=== PATIENT | male | born 1985 | race African-American/Black ===

== ENCOUNTER 2020-03-30 17:45 | Inpatient (IN) | payer OTHER ==
[~2020-03-30] VITALS: Ht 167.6 cm; Wt 44.5 kg
--- NOTE | 2020-03-30 00:58 | NUR ---
RN NOTE RECEIVED PT FROM ER VIA FREDDY ACCOMPANIED BY RN AND EMT. PT ALERT AND ORIENTED X 3. WITH TRACH SHILEY 6 CONNECTED TO VENT AND TOLERATING SETTINGS WELL. FIO2 60%. CONNECTED TO BED SIDE MONITOR. SR ON THE MONITOR. VITAL SIGNS STABLE. WITH YAO CATHETER DRAINING YELLOW URINE WITH SEDIMENTS. WITH J TUBE POSITIVE PLACEMENT ASPIRATED AND FLUSHED. BED BATH AND COMPLETE LINEN CHANGE COMPLETED. CALL LIGHT WITHIN REACH, SAFETY MEASURES IN PLACE, WILL MONITOR PT. Addendum: 03/31/20 at 0044 by RAEANN VILLANUEVA RN ERROR: CORRECTED CARMITA 03/30/20 [id number]
--- NOTE | 2020-03-30 17:53 | NUR ---
BIB [facility] C/O DESATURATION, O2 SAT 89% RECENTLY D/C [facility] AND DX WITH PNE. PATIENT A/OX4, PLACED ON THE MECHANICAL VENTILATOR. RT AT BEDSIDE. DR. ONEAL AT BEDSIDE FOR EVAL.
--- NOTE | 2020-03-30 18:00 | NUR ---
IV LINE ESTABLISHED, BLOOD DRAWN AND SENT TO LAB.
--- NOTE | 2020-03-30 18:01 | NUR ---
PATIENT REFUSED TO HAVE A YAO CATHETER CHANGE, EXPLAINED RISKS AND BENEFITS, STILL REFUSED. DR. ONEAL MADE AWARE AND STATED DO NOT SEND URINE IF CATHETER IS NOT CHANGED.
[2020-03-30 18:16] LABS: BASOPHILS % (AUTO) 0.3 % (0.0-2.0); EOSINOPHILS % (AUTO) 2.4 % (0.0-6.0); HEMATOCRIT 26 % (39-51); HEMOGLOBIN 8.3 g/dL (13.5-17.5); LYMPHOCYTES % (AUTO) 16.3 % (20.0-44.0); MEAN CORPUSCULAR HGB CONC 32 g/dl (31.0-36.0); MEAN CORPUSCULAR VOLUME 88 fL (80-96); MONOCYTES # (AUTO) 0.5 /CMM (0.1-1.30); MONOCYTES % (AUTO) 8.2 % (2.0-12.0); NEUTROPHILS # (AUTO) 4.5 /CMM (1.8-8.9); NEUTROPHILS % (AUTO) 72.8 % (43.0-81.0); PLATELET COUNT (AUTO) 408 /CMM (150-450); RED BLOOD CELL COUNT(AUTO) 2.98 MIL/uL (4.5-6.0); WHITE BLOOD COUNT (AUTO) 6.2 K/uL (4.3-11.0)
[2020-03-30] MEDS ORDERED: VANCOMYCIN 1 GM in IV D5W 250 ML IV ONE (18:30)
[2020-03-30] MEDS ORDERED: IV NS 0.9% 1,000 ML BAG IV ONE (18:30)
[2020-03-30] MEDS ORDERED: MEROPENEM 1,000 MG in IV NS 0.9% 100 ML IV ONE (18:30)
[2020-03-30 18:36] LABS: ALANINE AMINOTRANSFERASE 32 U/L (12-78); ALKALINE PHOSPHATASE 126 U/L (46-116); ASPARTATE AMINOTRANSFERASE 17 U/L (15-37); BILIRUBIN,DIRECT 0.1 mg/dL (0.0-0.2); BILIRUBIN,TOTAL 0.3 mg/dL (0.2-1.0); CARBON DIOXIDE 33 mmol/L (21-32); CHLORIDE 105 mmol/L (98-107); CREATININE 0.4 mg/dL (0.6-1.3); GLUCOSE 104 mg/dL (74-106); POTASSIUM 3.8 mmol/L (3.5-5.1); SODIUM SERUM 142 mmol/L (136-145); TOTAL PROTEIN, SERUM 7.1 g/dL (6.4-8.2); UREA NITROGEN, BLOOD 9 mg/dL (7-18)
--- NOTE | 2020-03-30 18:53 | NUR ---
Grandmother left contact information brenda obrien [phone]
[2020-03-30] MEDS ORDERED: MERO1VIA23 IV (18:59)
[2020-03-30] MEDS ORDERED: IPRA3AMP23 IH ×2 (18:59)
[2020-03-30] MEDS ORDERED: MIDO10TA JT (18:59)
[2020-03-30] MEDS ORDERED: CHLO473M5 MM (18:59)
[2020-03-30] MEDS ORDERED: MINE3.5O EACHEYE (18:59)
[2020-03-30] MEDS ORDERED: DOCU50LI JT (18:59)
[2020-03-30] MEDS ORDERED: ENOX40DI SQ (18:59)
[2020-03-30] MEDS ORDERED: ZINC1CAP2 JT (18:59)
[2020-03-30] MEDS ORDERED: ALPR0.5T8 JT (18:59)
[2020-03-30] MEDS ORDERED: MELA3TAB41 JT (18:59)
[2020-03-30] MEDS ORDERED: HYDR-4384 JT (18:59)
[2020-03-30] MEDS ORDERED: POLY17PO4 JT (18:59)
[2020-03-30] MEDS ORDERED: VANC500V IV (18:59)
[2020-03-30] MEDS ORDERED: BACL10TA JT (18:59)
[2020-03-30] MEDS ORDERED: ESCI10TA JT (18:59)
[2020-03-30] MEDS ORDERED: LACT-209 JT (18:59)
[2020-03-30] MEDS ORDERED: SENN-261 JT (18:59)
[2020-03-30] MEDS ORDERED: BISA10SU11 RC (18:59)
[2020-03-30] MEDS ORDERED: ASCO-495 JT (18:59)
[2020-03-30] MEDS ORDERED: ACET-868 JT ×2 (18:59)
[2020-03-30] MEDS ORDERED: LACT10SO JT (18:59)
[2020-03-30] MEDS ORDERED: METO5SOL JT (18:59)
[2020-03-30] MEDS ORDERED: ONDA4TAB5 JT (18:59)
--- NOTE | 2020-03-30 19:22 | NUR ---
COVID SWAB SENT, ENDORSED TO LILA WHITE FOR JENNIFER.
--- NOTE | 2020-03-30 19:39 | NUR ---
PT REFUSED TO HAVE ABG DRAWN, DR ONEAL MADE AWARE. PER DR ONEAL, VENT SETTINGS WILL STAY SAME, & PT WILL STILL NEED TO GO ICU.
[2020-03-30] MEDS ORDERED: MORPHINE SULFATE INJ 2 MG/ML DISP.SYRIN IV PRN (20:00)
[2020-03-30] MEDS ORDERED: HYDROCODONE/APAP 5/325MG TABLET GT PRN (20:00)
[2020-03-30] MEDS ORDERED: Z GUARD REMEDY 2 OZ OINT TP PRN (20:00)
[2020-03-30] MEDS ORDERED: TEMAZEPAM 15 MG CAPSULE GT PRN (20:00)
[2020-03-30] MEDS ORDERED: ONDANSETRON HCL/PF 4 MG/2 ML VIAL IVP PRN (20:00)
[2020-03-30] MEDS: ENOXAPARIN SODIUM 40 MG/0.4 ML DISP.SYRIN SQ SCH (20:00)
[2020-03-30] MEDS ORDERED: ACETAMINOPHEN 325 MG TABLET PO PRN (20:00)
[2020-03-30] MEDS ORDERED: AZITHROMYCIN 500 MG in IV D5W 250 ML IV ONE (20:00)
[2020-03-30] MEDS ORDERED: JEVITY 1.2 CAL 1,000 ML BOTTLE JT PRN (20:30)
[2020-03-30] MEDS ORDERED: BACLOFEN (10 MG) 10 MG TABLET GT PRN (20:30)
[2020-03-30] MEDS ORDERED: SENNOSIDES 8.6 MG TABLET GT PRN (20:30)
[2020-03-30] MEDS ORDERED: LACTULOSE 10 G/15 ML UDC (PYXIS) GT PRN (20:30)
[2020-03-30] MEDS ORDERED: ALBUTEROL FS 2.5 MG/0.5 ML VIAL.NEB NEB PRN (20:30)
[2020-03-30] MEDS ORDERED: MIDODRINE HCL (5MG) 5 MG TABLET GT PRN (20:30)
[2020-03-30] MEDS ORDERED: BISACODYL SUPP (10 MG) 10 MG/SUPP.RECT SUPP.RECT RC PRN (20:30)
[2020-03-30] MEDS ORDERED: ALPRAZOLAM 0.5 MG TABLET GT PRN (20:30)
[2020-03-30 20:58] LABS: C-REACTIVE PROTEIN 11.1 mg/dL (0.0-0.9)
[2020-03-30] MEDS: CHLORHEXIDINE GLUCONATE 15 ML UDC MM SCH (21:00)
[2020-03-30] MEDS ORDERED: PANTOPRAZOLE 40 MG VIAL IV ONE ×2 (21:00→21:30)
[2020-03-30] MEDS: DOCUSATE SODIUM LIQ 100 MG/10 ML UDC JT SCH (21:00)
[2020-03-30] MEDS ORDERED: MEROPENEM 500 MG in IV NS 0.9% 50 ML IV SCH (21:00)
[2020-03-30] MEDS ORDERED: HYDROCODONE/APAP 5/325MG TABLET ONE (21:11)
[2020-03-30] MEDS: HYDROCODONE/APAP 5/325MG TABLET JT PRN (21:22)
[2020-03-31] VITALS (75 sets, daily range): BP systolic 95–125; BP diastolic 49–91
--- NOTE | 2020-03-31 00:02 | NUR ---
REPORT GIVEN TO CINDY CARY FOR JENNIFER; PT TRANSPORTED TO ICU
--- NOTE | 2020-03-31 00:56 | NUR ---
RN NOTE PT NOTED TO HAVE OVERDUE MEDICATIONS TO BE GIVEN 03/30/201999 AND 2099. PER ERNESTO TOE STRIPPER, OKAY TO HOLD MEDICATIONS FOR NOW AND "LET PATIENT REST." NOTIFIED [facility].
--- NOTE | 2020-03-31 01:00 | NUR ---
RN NOTE COMPLETE BED BATH AND AM CARE COMPLETED VIA 2 PERSON ASSIST. PT TOLERATED WELL,. HAD 1 BOWEL MOVEMENT. KEPT COMFORTABLE.
--- NOTE | 2020-03-31 02:35 | NUR ---
RN NOTE PT STATES HAVING ALREADY RECIEVED FLU VACCINE AT SNF. ATTEMPTED TO CALL [facility] BUT NO ANSWER. WILL ENDORSE TO MORNING SHIFT TO FOLLOW UP.
[2020-03-31] MEDS ORDERED: VANCOMYCIN 1.25 GM in IV D5W 250 ML IV ONE (03:00)
[2020-03-31] MEDS ORDERED: MEROPENEM 1 G in IV NS 0.9% 100 ML IV SCH ×2 (03:00→11:00)
[2020-03-31] MEDS ORDERED: IV NS 0.9% 250 ML IV ONE (03:00)
[2020-03-31] MEDS ORDERED: VANCOMYCIN 1 GM VIAL ONE (03:05)
[2020-03-31] MEDS: IV NS 0.9% 1,000 ML IV PRN ×2 (03:07→17:09)
[2020-03-31] MEDS ORDERED: MEROPENEM 1 G VIAL IV ONE (03:08)
--- NOTE | 2020-03-31 04:00 | NUR ---
RN NOTE PT SLEEPING COMFORTABLY IN BED WITHOUT SIGNS OF DISTRESS OR DISCOMFORT. VITAL SIGNS STABLE VIA BEDSIDE MONITOR.
[2020-03-31 04:47] LABS: BASOPHILS % (AUTO) 0.4 % (0.0-2.0); EOSINOPHILS % (AUTO) 5.2 % (0.0-6.0); HEMATOCRIT 24 % (39-51); HEMOGLOBIN 7.8 g/dL (13.5-17.5); LYMPHOCYTES # (AUTO) 1.4 /CMM (0.8-4.8); LYMPHOCYTES % (AUTO) 22.5 % (20.0-44.0); MEAN CORPUSCULAR HGB CONC 33 g/dl (31.0-36.0); MEAN CORPUSCULAR VOLUME 88 fL (80-96); MONOCYTES # (AUTO) 0.4 /CMM (0.1-1.30); MONOCYTES % (AUTO) 6.8 % (2.0-12.0); NEUTROPHILS # (AUTO) 4.1 /CMM (1.8-8.9); NEUTROPHILS % (AUTO) 65.1 % (43.0-81.0); PLATELET COUNT (AUTO) 373 /CMM (150-450); RED BLOOD CELL COUNT(AUTO) 2.73 MIL/uL (4.5-6.0); WHITE BLOOD COUNT (AUTO) 6.3 K/uL (4.3-11.0)
--- NOTE | 2020-03-31 05:08 | NUR ---
RT NOTE Pt rec'd trached on [facility] vent on AC mode. Pt shows no signs of resp distress or sob. Pt awake and alert. Trach is patent and secured. Pt sx'd for thick mod amt of pale yellow secretions. Alarms are set and audible. Vent plugged into red outlet. Ambu bag and emergency spare trach bedside. Will continue to monitor closely. Addendum: 03/31/20 at 0509 by FRANKLIN HI RT Amended: Links added.
[2020-03-31 05:20] LABS: CALCIUM, SERUM 8.4 mg/dL (8.5-10.1); CREATININE 0.4 mg/dL (0.6-1.3); PHOSPHORUS 3.2 mg/dL (2.5-4.9); POTASSIUM 3.5 mmol/L (3.5-5.1)
[2020-03-31 06:00] LABS: THYROID STIMULATING HORMONE 2.99 uIU/mL (0.358-3.74)
--- NOTE | 2020-03-31 06:59 | NUR ---
RN NOTE SPOKE TO MELINA FROM [facility] TO INQUIRE ABOUT PT'S FLU VACCINATION RECORD. STATES THAT "IT IS NOT NOTED IN OUR CHART OR FROM THE PREVIOUS HOSPITALIZATION RECORD." SPOKE TO PT AGAIN WHO IS ALERT AND ORIENTED. STATES THAT HE DID RECIEVE THE VACCINE BUT DOES NOT REMEMBER WHEN OR WHERE HE RECEIVED IT.
--- NOTE | 2020-03-31 07:01 | NUR ---
RN NOTE NO ACUTE CHANGES SINCE ADMISSION TO UNIT. PT SLEEPING COMFORTABLY IN BED BUT EASILY AROUSABLE. VITAL SIGNS STABLE. IVF RUNNING ORDERED WITHOUT SIGNS OF COMPLICATIONS NOTED AT IV SITE. TOLERATING VENT SETTINGS WELL. NO SIGNS OF PAIN OR DISCOMFORT. DVT PUMPS NOT AVAILABLE, CALLED [employer] FOR DVT PUMP. CALL LIGHT WITHIN REACH, SAFETY MEASURES IN PLACE, WILL ENDORSE TO MORNING RN FOR JENNIFER.
--- NOTE | 2020-03-31 07:47 | NUR ---
HARNESS WORKER RECEIVED PT IN BED AOX4 VS STABLE PT IS TRACHED ON VENT SETTINGS NOTICED, IV ACCESS PATENT YAO PRESENT, GT FEEDING RUNNING PT TOLERATING WELL TURN AND REPOSITION IN BED WILL CONT TO MONITOR.
[2020-03-31] MEDS: DOCUSATE SODIUM LIQ 100 MG/10 ML UDC JT SCH ×2 (08:05→21:25)
[2020-03-31] MEDS: CHLORHEXIDINE GLUCONATE 15 ML UDC MM SCH ×2 (08:05→21:38)
[2020-03-31] MEDS: ZINC SULFATE 220 MG CAPSULE JT SCH (08:05)
[2020-03-31] MEDS: ASCORBIC ACID 500 MG TABLET NG SCH (08:05)
[2020-03-31] MEDS: DOXYCYCLINE HYCLATE (100 MG) 100 MG TABLET GT SCH ×2 (08:05→17:03)
[2020-03-31] MEDS: LANOLIN/MIN OIL/PETROLAT,WHT 3.5 GM TUBE EACHEYE SCH ×6 (08:06→23:30)
[2020-03-31] MEDS: POLYETHYLENE GLYCOL 3350 17 GM POWD.PACK GT SCH ×2 (08:07→17:00)
[2020-03-31] MEDS: ESCITALOPRAM OXALATE (10 MG) 10 MG TABLET GT SCH (08:07)
[2020-03-31] MEDS: MEROPENEM 1 G in IV NS 0.9% 100 ML IV SCH ×2 (12:36→21:40)
--- NOTE | 2020-03-31 17:28 | NUR ---
curriculum counselor pt in bed resting, no distress noted during shift, offered several times bed bath pt keep refusing stating, he received bed bath at night and dont need one, also 1st step mattress arrived pt is refusing to be placed, explained him risk and benefits pt still refusing will endorse closet organizer nurse to change during bed bath as pt agreed. turn and reposition q2hrs and as needed offload
--- NOTE | 2020-03-31 17:33 | NUR ---
FIO2 TITRATE DOWN TO 40% DUE TO SPO2 100% Addendum: 03/31/20 at 1734 by BERLIN ZULUAGA RT Amended: Links added.
[2020-03-31] MEDS: JEVITY 1.2 CAL 1,000 ML BOTTLE JT PRN (18:47)
[2020-03-31] MEDS ORDERED: JEVITY 1.2 CAL 1,000 ML BOTTLE JT PRN (19:00)
--- NOTE | 2020-03-31 19:00 | NUR ---
Received patient awake,alert,with tracheostomy tot he ventilator on AC mode,breathing regular and non labored,saturating high 90's, not in any distress.Coherent and appropriate,mouth talks and gestures, uncooperative,does not want to be bothered, refused total assessment,refused to move or turn. with J tube with on going tube feeding.
[2020-03-31] MEDS: ENOXAPARIN SODIUM 40 MG/0.4 ML DISP.SYRIN SQ SCH ×2 (19:53→20:00)
[2020-03-31] MEDS ORDERED: VANCOMYCIN 1.25 GM in IV D5W 250 ML IV SCH (20:00)
--- NOTE | 2020-03-31 20:00 | NUR ---
Refused meds. (LOVENOX SQ and eye ointment)
--- NOTE | 2020-03-31 20:00 | NUR ---
Awaiting Vanco trough result, (last level 24 ),will hold off Vanco dose till level comes back.
--- NOTE | 2020-03-31 21:38 | NUR ---
RT NOTE PT RECEIVED TRACHED ON MECHANICAL VENTILATION WITH SHILEY [address] PT AWAKE/ALERT. SX DONE, TRACH SECURED AND PATENT. SPUTUM OBTAINED. ALARMS ON AND AUDIBLE. NO DISTRESS NOTED. WILL MONITOR T/O SHIFT. Addendum: 03/31/20 at 2139 by BERYL NATION RT Amended: Links added.
--- NOTE | 2020-03-31 22:00 | NUR ---
Remains stable,asleep.Not in any distress.
[2020-04-01] VITALS (23 sets, daily range): BP systolic 99–169; BP diastolic 48–85
--- NOTE | 2020-04-01 | NUR ---
Still refusing to turn or move ,gets irritated easily ,does not want to be bothered.
--- NOTE | 2020-04-01 02:00 | NUR ---
Had a large bowel movement ,patient finally agreed to turn, AM bath done,placed on [employer] mattress. Remains stable,not in any distress,tolerated turning with no shortness of breath.
[2020-04-01] MEDS: LANOLIN/MIN OIL/PETROLAT,WHT 3.5 GM TUBE EACHEYE SCH ×6 (03:30→23:24)
--- NOTE | 2020-04-01 04:00 | NUR ---
Stable,not in any distress.Now refusing SCD's ,ewants to take it out of his legs.
[2020-04-01 04:48] LABS: BASOPHILS # (AUTO) 0.2 /CMM (0.0-0.2); BASOPHILS % (AUTO) 2.7 % (0.0-2.0); EOSINOPHILS % (AUTO) 5.1 % (0.0-6.0); HEMATOCRIT 25 % (39-51); HEMOGLOBIN 8.4 g/dL (13.5-17.5); LYMPHOCYTES # (AUTO) 0.9 /CMM (0.8-4.8); LYMPHOCYTES % (AUTO) 13.7 % (20.0-44.0); MEAN CORPUSCULAR HGB CONC 33 g/dl (31.0-36.0); MEAN CORPUSCULAR VOLUME 88 fL (80-96); MONOCYTES # (AUTO) 0.4 /CMM (0.1-1.30); NEUTROPHILS # (AUTO) 4.6 /CMM (1.8-8.9); NEUTROPHILS % (AUTO) 72.5 % (43.0-81.0); PLATELET COUNT (AUTO) 440 /CMM (150-450); RED BLOOD CELL COUNT(AUTO) 2.87 MIL/uL (4.5-6.0); WHITE BLOOD COUNT (AUTO) 6.3 K/uL (4.3-11.0)
[2020-04-01 05:07] LABS: CALCIUM, SERUM 8.3 mg/dL (8.5-10.1); CREATININE 0.3 mg/dL (0.6-1.3); MAGNESIUM 2.1 mg/dL (1.8-2.4); PHOSPHORUS 3.5 mg/dL (2.5-4.9); POTASSIUM 3.9 mmol/L (3.5-5.1)
[2020-04-01] MEDS: MEROPENEM 1 G in IV NS 0.9% 100 ML IV SCH ×3 (05:15→20:43)
--- NOTE | 2020-04-01 07:00 | NUR ---
Remains stable,not in any distress,breathing regular and non labored. Report given to Shmuel WHITE.
--- NOTE | 2020-04-01 08:20 | NUR ---
NOODLE MAKER NOTES RECEIVED PATIENT IN BED RESTING COMFORTABLY. RESPONSIVE TO VERBAL AND TACTILE STIMULI. PATIENT ON J-TUBE FEEDING ON JEVITY 70 CC/HR. RESIDUAL 30 CC NOTED. HEAD OF BED KEPT ELEVATED. ON TELE MONITORING, SR. ON TRACH TO VENT SETTING ORDERED. YAO CATHETER TO GRAVITY URINE CLOUDY AND YELLOW. WITH LEFT AC #20 AND RIGHT FA #18 INTACT AND PATENT, FLUSHING WELL. ON IV FLUID ORDERED. BED LOCKED AND IN LOWEST POSITION. CALL LIGHT WITHIN REACH. REFUSING DVT PUMPS AT THIS TIME. WILL CONTINUE TO MONITOR.
[2020-04-01] MEDS: ASCORBIC ACID 500 MG TABLET NG SCH (08:34)
[2020-04-01] MEDS: DOCUSATE SODIUM LIQ 100 MG/10 ML UDC JT SCH ×2 (08:34→20:43)
[2020-04-01] MEDS: ESCITALOPRAM OXALATE (10 MG) 10 MG TABLET GT SCH (08:35)
[2020-04-01] MEDS: DOXYCYCLINE HYCLATE (100 MG) 100 MG TABLET GT SCH ×2 (08:35→16:37)
[2020-04-01] MEDS: ZINC SULFATE 220 MG CAPSULE JT SCH (08:35)
[2020-04-01] MEDS: POLYETHYLENE GLYCOL 3350 17 GM POWD.PACK GT SCH ×2 (08:44→16:37)
[2020-04-01] MEDS: CHLORHEXIDINE GLUCONATE 15 ML UDC MM SCH ×2 (08:44→20:43)
[2020-04-01] MEDS: IV NS 0.9% 1,000 ML IV PRN ×2 (09:02→22:05)
[2020-04-01] MEDS: JEVITY 1.2 CAL 1,000 ML BOTTLE JT PRN ×2 (09:02→22:05)
--- NOTE | 2020-04-01 09:03 | NUR ---
WOUND CARE CONSULT: PT ADAMANTLY REFUSED SKIN ASSESSMENT. REVIEWED CHART, NURSING DOCUMENTATION AND PHOTOS WHICH INDICATE SACRAL AND BUTTOCK WOUNDS, UPPER BACK WOUND AND SCARRING FROM PREVIOUS FLAP PROCEDURE PER SENDING FACILITY, ALL PRESENT ON ADMISSION. RECOMMEND SURGICAL CONSULT. DR BARTON NOTIFIED OF CONSULT REQUEST. PT IS ON FIRST STEP [facility] BED. SKIN PROTECTION RECOMMENDATIONS MADE AND DISCUSSED WITH NURSING STAFF. MD IN AGREEMENT WITH PLAN OF CARE.
--- NOTE | 2020-04-01 09:07 | NUR ---
ELECTRONIC SCALE SUBASSEMBLER NOTES WOUND CARE NURSE AT BEDSIDE. PATIENT REFUSING TO CHECK WOUNDS ON SACRUM AND HIP.
--- NOTE | 2020-04-01 10:34 | NUR ---
SYSTEM SUPPORT DEVELOPER NOTES PER MELISSA MESSINA TO TRANSFER TO TELE UNIT. WILL FOLLOW UP.
--- NOTE | 2020-04-01 10:37 | NUR ---
WELL DIGGER NOTES DR. WELLS AT BEDSIDE, UPDATED PATIENT CONDITION. MADE AWARE PATIENT NON COMPLIANT WITH DVT PUMPS AND REFUSED SKIN CHECK WITH WOUND CARE NURSE.
--- NOTE | 2020-04-01 11:24 | NUR ---
ARTS ADMINISTRATOR OR MANAGER NOTES PATIENT STILL REFUSING TO REPOSITION, CHECK WOUND ON SACRUM, AND REFUSING TO BE CHANGED AT THIS TIME. PATIENT REFUSED FLU VACCINE. OFFERED AND EXPLAINED RISKS AND BENEFITS, BUT STILL STRONGLY REFUSED. WILL RESPECT PATIENT RIGHTS.
[2020-04-01] MEDS: VANCOMYCIN 1 GM in IV D5W 250 ML IV SCH (15:44)
--- NOTE | 2020-04-01 15:57 | NUR ---
staff nurse icu resource team note no bed available in tele unit chrarge nurse notified ,
--- NOTE | 2020-04-01 18:21 | NUR ---
IMMUNOLOGY TEACHER NOTES PATIENT STILL REFUSING TO DO REPOSITION. CONTINUE ON IVF. CONTINUE J-TUBE FEEDING, TOLERATING WELL. PATIENT HAS TRACH ORDERED. BED LOCKED AND IN LOWEST POSITION. CALL LIGHT WITHIN REACH. SAFETY MEASURES IMPLEMENTED. SPOKE WITH CHARGE NURSE TO TRANSFER TO TELE UNIT, STATED WILL FOLLOW UP AND WILL ENDORSE NEXT SHIFT.
--- NOTE | 2020-04-01 19:41 | NUR ---
PEOPLESOFT DEVELOPER. INITIAL ASSESSMENT. RECEIVED THE PT REST ON THE BED. TRACH TO VENT CONNECTED. PORTEX#6,AC 14,TV 500,FIO2 40%,PEEP 5. SAT 98%. NO ACUTE DISTRESS NOTED. VULCANIZER OPERATOR SHOWING NSR. IV LT AND RT HAND IVF NS 75ML/H. HOB ELEVATED, GT INTACT. JEVITY 70ML/H. FC PATENT. URINE DRAINING. AFEBRILE. WILL CONTINUE TO MONITOR VITALS.
[2020-04-01] MEDS: THERAHONEY GEL 1.5 OZ TUBE TP SCH (20:43)
[2020-04-01] MEDS: ENOXAPARIN SODIUM 40 MG/0.4 ML DISP.SYRIN SQ SCH (20:49)
--- NOTE | 2020-04-01 20:53 | NUR ---
REACH LIFT TRUCK DRIVER. ALL MEDS SCANNED
--- NOTE | 2020-04-01 21:00 | NUR ---
articulation officer. transfer the pt to room 103. with ACLS protocol report given to MANJEET WHITE. pt is stable,
--- NOTE | 2020-04-01 21:10 | NUR ---
QA TEST ANALYST NOTE RECEIVED REPORT FROM MARTIN WHITE, PATIENT FROM ICU VIA HOSPITAL BED ACCOMPANIED BY ICU ASSEMBLER SURGICAL GARMENT, PATIENT IS AO X3, IN NO S/SX OF ACUTE DISTRESS AT THIS TIME. PATIENT'S BREATHING IS EVEN AND UNLABORED, ON TRACH CONNECTED TO MECHANICAL VENTILATOR WITH SETTINGS PRESCRIBED, TOLERATING WELL, SATURATING AT 96%. PATIENT ON TELE MONITOR READING SR, HR IS @63. IV SITE NOTED AT LAC G20, AND RFA G18, BOTH PATENT AND FLUSHING WELL, RESTARTED IV FLUID OF NS AT 75 ML/HR. NOTED GTUBE INTACT, PLACEMENT WAS CHECKED BY ASPIRATION AND AUSCULTATION, NO RESIDUAL NOTED, RESTARTED GTUBE FEEDING OF JEVITY 1.2 AT 70 ML/HR PER ORDERS. YAO CATHETER CONNECTED TO URINE BAG IN PLACE, DRAINING TO A CLEAR YELLOWISH URINE. SAFETY MEASURES IMPLEMENTED PER PROTOCOL. PATIENT BED ALARM IS ON. HEAD OF BED ELEVATED. BED IS LOCKED, IN LOWEST POSITION AND SIDE RAILS UP. CALL LIGHT WITHIN REACH OF THE PATIENT. WILL CONTINUE TO MONITOR AND REASSESS FOR ANY CHANGES.
--- NOTE | 2020-04-01 23:24 | NUR ---
RN NOTE AKWA TEARS OINTMENT GIVEN BY RN AT ICU AT 2100. NEXT DOSE WILL BE GIVEN AT 0100.
[2020-04-01] MEDS: HYDROCODONE/APAP 5/325MG TABLET JT PRN (23:26)
[2020-04-02] VITALS: BP 109/68
[2020-04-02 04:00] VITALS: BP 107/67
[2020-04-02] MEDS: VANCOMYCIN 1 GM in IV D5W 250 ML IV SCH ×2 (04:44→16:06)
[2020-04-02] MEDS: MEROPENEM 1 G in IV NS 0.9% 100 ML IV SCH ×3 (04:44→20:12)
[2020-04-02] MEDS: LANOLIN/MIN OIL/PETROLAT,WHT 3.5 GM TUBE EACHEYE SCH ×6 (04:45→23:34)
--- NOTE | 2020-04-02 07:15 | NUR ---
RN OPENING NOTE Received patient asleep in bed appears calm and relaxed. No signs of distress. On trach and vent Shiley 8 AC 14 TV 500 FIO2 40% PEEP 5. Patient is AO X3 able to mouth words and tried to refuse blood draw. Explained risk and benefits and was able to get blood by honey extractor. Tele monitor reading SR 60s. On a FC draining clear yellow urine by gravity. GT feeding running Jevity 1.2 @ 70ml/hr. LAC #20 running NS @ 75ml/hr. RFA #18 flushes well. Patient is able to move his arms and write on paper and able to mouth words when communicating. Safety measures maintained. Call light within reach. Will cont to monitor.
--- NOTE | 2020-04-02 07:32 | NUR ---
RN NOTE PATIENT REMAINS IN ROOM RESTING COMFORTABLY. NO SIGNS OF RESPIRATORY DISTRESS, STILL ON TRACH CONNECTED TO MECH VENT, TOLERATTING WELL SATURATING >95%. NS INFUSING AT 75 ML/HR, AND TUBE FEEDING OF JEVITY AT 70 ML/HR. PATIENT IS CLEAN , DRY AND COMFORTABLE THROUGHOUT THE SHIFT. ALL DUE MEDS GIVEN ORDERED ; PATIENT TOLERATED WELL. SAFETY MEASURES IMPLEMENTED, BED IN LOWEST POSITION, LOCKED, SIDE RAILS UP, CALL LIGHT WITHIN REACH. ENDORSED TO CLAIRE RN FOR CONTINUITY OF CARE.
[2020-04-02 07:42] LABS: BASOPHILS # (AUTO) 0.1 /CMM (0.0-0.2); BASOPHILS % (AUTO) 1.5 % (0.0-2.0); EOSINOPHILS % (AUTO) 6.6 % (0.0-6.0); HEMATOCRIT 26 % (39-51); HEMOGLOBIN 8.3 g/dL (13.5-17.5); LYMPHOCYTES % (AUTO) 22.5 % (20.0-44.0); MEAN CORPUSCULAR HGB CONC 33 g/dl (31.0-36.0); MEAN CORPUSCULAR VOLUME 89 fL (80-96); MONOCYTES # (AUTO) 0.3 /CMM (0.1-1.30); MONOCYTES % (AUTO) 7.6 % (2.0-12.0); NEUTROPHILS # (AUTO) 2.8 /CMM (1.8-8.9); NEUTROPHILS % (AUTO) 61.8 % (43.0-81.0); PLATELET COUNT (AUTO) 452 /CMM (150-450); RED BLOOD CELL COUNT(AUTO) 2.89 MIL/uL (4.5-6.0); WHITE BLOOD COUNT (AUTO) 4.6 K/uL (4.3-11.0)
[2020-04-02 07:54] LABS: CALCIUM, SERUM 8.8 mg/dL (8.5-10.1); CREATININE 0.3 mg/dL (0.6-1.3); PHOSPHORUS 3.1 mg/dL (2.5-4.9); POTASSIUM 4.1 mmol/L (3.5-5.1)
[2020-04-02 08:00] VITALS: BP 95/47
--- NOTE | 2020-04-02 08:00 | NUR ---
CALLED DR. TOLLIVER TO INQUIRE IF HE STILL WANTS TO CONTINUE IVF. GT FEEDING TOLERATING WELL. AWAITING RESPONSE.
[2020-04-02] MEDS: DOXYCYCLINE HYCLATE (100 MG) 100 MG TABLET GT SCH ×2 (08:56→16:07)
[2020-04-02] MEDS: ZINC SULFATE 220 MG CAPSULE JT SCH (08:56)
[2020-04-02] MEDS: ESCITALOPRAM OXALATE (10 MG) 10 MG TABLET GT SCH (08:56)
[2020-04-02] MEDS: CHLORHEXIDINE GLUCONATE 15 ML UDC MM SCH ×2 (08:56→20:07)
[2020-04-02] MEDS: POLYETHYLENE GLYCOL 3350 17 GM POWD.PACK GT SCH ×2 (08:56→16:06)
[2020-04-02] MEDS: DOCUSATE SODIUM LIQ 100 MG/10 ML UDC JT SCH ×2 (08:56→20:07)
[2020-04-02] MEDS: THERAHONEY GEL 1.5 OZ TUBE TP SCH (08:57)
[2020-04-02] MEDS: ASCORBIC ACID 500 MG TABLET NG SCH (08:57)
--- NOTE | 2020-04-02 10:00 | NUR ---
OFFERED TO TURN PATIENT PATIENT REFUSED
[2020-04-02 12:00] VITALS: BP 94/55
--- NOTE | 2020-04-02 14:30 | NUR ---
FACETIMED WITH SISTER CHRIS. OFFERED TO TURN PATIENT PATIENT REFUSED.
--- NOTE | 2020-04-02 15:17 | NUR ---
OFFERED TO GIVE PAIN MEDS TO PATIENT BEFORE BED BATH. PATIENT REFUSED.
[2020-04-02 16:00] VITALS: BP 116/68
[2020-04-02] MEDS: JEVITY 1.2 CAL 1,000 ML BOTTLE JT PRN (16:07)
--- NOTE | 2020-04-02 18:49 | NUR ---
RN OPENING NOTE Patient in bed asleep appears calm and relaxed. No signs of distress. Vent settings remain the same. GT feeding running tolerating well. IV NS 75ml/hr running or R forearm. Jasso catheter in place drained 1300ml clear yellow urine. No co pain or discomfort. Vital signs within normal limits. Will endorse to night time nanny nurse for camron. Addendum: 04/02/20 at 1853 by EDITH MCNAIR RN RN CLOSING NOTE
--- NOTE | 2020-04-02 19:05 | NUR ---
RECEIVED PT ON BED AWAKE A/O X 4 CAN MOUTH WORDS ON TRACH VENT SETTING ORDER, SPO2 98% TELE MONITR READS SINUS RHYTHM 60'S HAVE GTUBE ON PLACE PATENT AND PLACEMENT CHECKED RESIDUAL 5ML, HAVE YAO WITH YELLOW URINE RAINING VIA GRAVITY PT IS REFUSING THE SCD HE ONLY WANTS THE BOOTS THAT HE IS WEARING, PT HAVE LAC# 20 AND RFA #18 IV CLEAN DRY AND INTACT PATENT AND FLUSHED WITH ONGOING NS @ 75ML/HR INFUSING WELL SAFETY MEASURE MAINTAINED BED ON LOWEST POSITION AND LOCKED SIDE RAILS UPX 2 CALL LIGHT WITHIN REACH WILL CONT TO MONITOR THE PT
[2020-04-02 20:00] VITALS: BP 98/51
[2020-04-02] MEDS: ENOXAPARIN SODIUM 40 MG/0.4 ML DISP.SYRIN SQ SCH (20:00)
[2020-04-02] MEDS: HYDROCODONE/APAP 5/325MG TABLET JT PRN (20:07)
--- NOTE | 2020-04-02 20:27 | NUR ---
PT REFUSED LOVENOX INJECTION EXPLAIN RISK AND BENEFITS X3 BUT PT STILL REFUSING CHARGE NURSE MADE AWARE WILL CONT TO MONITOR THE PT
[2020-04-03] MEDS: IV NS 0.9% 1,000 ML IV PRN ×2 (00:02→21:22)
[2020-04-03 00:30] VITALS: BP 97/52
[2020-04-03] MEDS: VANCOMYCIN 1 GM in IV D5W 250 ML IV SCH ×2 (02:58→15:50)
[2020-04-03] MEDS: LANOLIN/MIN OIL/PETROLAT,WHT 3.5 GM TUBE EACHEYE SCH ×6 (03:23→23:30)
[2020-04-03 04:00] VITALS: BP 96/50
[2020-04-03] MEDS: MEROPENEM 1 G in IV NS 0.9% 100 ML IV SCH ×2 (04:31→12:50)
[2020-04-03] MEDS: JEVITY 1.2 CAL 1,000 ML BOTTLE JT PRN ×2 (05:55→22:06)
--- NOTE | 2020-04-03 06:00 | NUR ---
PT REFUSED THE AM BLOOD DRAW EXPLAIN THE RISK AND BENEFITS BUT PT STILL REFUSING AND HE BECOME MORE UPSET WHEN WE ARE EXPLAINING TO HIM WHY HE NEED THE BLOOD DRAW CHARGE NURSE MADE AWARE
[2020-04-03 08:00] VITALS: BP 96/54
--- NOTE | 2020-04-03 08:00 | NUR ---
telephone directory distributor driver note patient in bed , sleeping comfortably but easily arousable , with vent to trach as ordered, on tele hr 60 at this time, with Jasso cath to gravity with yellow color urine, with g tube feeding tolerated well keep hob elevated at all time olivia hl intact ,on ivf as ordered bed in lowest and locked position, will cont to monitor
[2020-04-03] MEDS: DOXYCYCLINE HYCLATE (100 MG) 100 MG TABLET GT SCH ×2 (08:40→16:22)
[2020-04-03] MEDS: ZINC SULFATE 220 MG CAPSULE JT SCH (08:41)
[2020-04-03] MEDS: ESCITALOPRAM OXALATE (10 MG) 10 MG TABLET GT SCH (08:41)
[2020-04-03] MEDS: ASCORBIC ACID 500 MG TABLET NG SCH (08:41)
[2020-04-03] MEDS: DOCUSATE SODIUM LIQ 100 MG/10 ML UDC JT SCH ×2 (08:41→21:00)
[2020-04-03] MEDS: CHLORHEXIDINE GLUCONATE 15 ML UDC MM SCH ×2 (08:44→21:21)
[2020-04-03] MEDS: POLYETHYLENE GLYCOL 3350 17 GM POWD.PACK GT SCH ×3 (08:53→16:30)
[2020-04-03] MEDS: THERAHONEY GEL 1.5 OZ TUBE TP SCH (09:00)
--- NOTE | 2020-04-03 10:00 | NUR ---
telesales specialist note report given to Angy
[2020-04-03 13:33] LABS: CALCIUM, SERUM 9.1 mg/dL (8.5-10.1); CREATININE 0.3 mg/dL (0.6-1.3); MAGNESIUM 2.3 mg/dL (1.8-2.4); PHOSPHORUS 3.5 mg/dL (2.5-4.9); POTASSIUM 4.3 mmol/L (3.5-5.1)
[2020-04-03 14:25] LABS: BASOPHILS # (AUTO) 0.2 /CMM (0.0-0.2); EOSINOPHILS % (AUTO) 3.8 % (0.0-6.0); HEMATOCRIT 31 % (39-51); LYMPHOCYTES # (AUTO) 0.5 /CMM (0.8-4.8); LYMPHOCYTES % (AUTO) 9.3 % (20.0-44.0); MEAN CORPUSCULAR HGB CONC 29 g/dl (31.0-36.0); MEAN CORPUSCULAR VOLUME 101 fL (80-96); MONOCYTES # (AUTO) 0.2 /CMM (0.1-1.30); MONOCYTES % (AUTO) 4.1 % (2.0-12.0); NEUTROPHILS % (AUTO) 79.8 % (43.0-81.0); PLATELET COUNT (AUTO) 458 /CMM (150-450); RED BLOOD CELL COUNT(AUTO) 3.09 MIL/uL (4.5-6.0)
--- NOTE | 2020-04-03 15:46 | NUR ---
telephone messenger note cesar rn life insurance specialist at bedside verified about ivf at 75 ml per hour and g tube feeding at 70 ml stated cont to administer diaz will f\u aware chest xay pna
[2020-04-03 16:00] VITALS: BP 90/48
[2020-04-03] MEDS: GENTAMICIN 400 MG in IV D5W 100 ML IV SCH (16:24)
--- NOTE | 2020-04-03 17:01 | NUR ---
KIT ASSEMBLER NOTE RT AT BEDSIDE ,TRACH SUCTION DONE
--- NOTE | 2020-04-03 17:23 | NUR ---
EXECUTIVE DIRECTOR OF NURSING NOTE NEW HL LT HAND HASMUKH 22 INSERTED WITH GOOD BLOOD RETURN
[2020-04-03] MEDS: LEVOFLOXACIN (250MG) 250 MG TABLET PO SCH (17:32)
--- NOTE | 2020-04-03 18:20 | NUR ---
CORRECTIONS LIEUTENANT CLOSING NOTE PT SEMI FOWLERS IN BED. PT A/OX3, UNABLE TO SPEAK, CAN MOUTH WORDS OR COMMUNICATE VIA WRITING DOWN. PT REPOSITIONED IN BED FOR COMFORT. PT ON VENTILATOR PER ORDER. PT TOLERATED JEVITY G TUBE FEED @70ML/HR. THROUGHOUT DAY. NEW IV 22 GAUGE LT HAND PLACED. CONTINUE W VENT SETTINGS ORDERED CONTINUE G TUBE FEEDINGS AND PULMONARY VENTILATION PRESCRIBED. SAFETY PRECAUTIONS IN PLACE, BED LOCKED AND IN LOWEST POSITION, CALL WELLS WITHIN REACH, SIDE RAILS UP X4. CONTINUE TO MONITOR.
[2020-04-03] MEDS: ENOXAPARIN SODIUM 40 MG/0.4 ML DISP.SYRIN SQ SCH (20:00)
--- NOTE | 2020-04-03 20:00 | NUR ---
jewelry internship opening note received pt in bed. a/ox4. Breathing even and unlabored with no sob or acute distress noted. Denies any pain or discomfort. IV site patent and intact. iv fluids infusing well. gtube patent. placement checked . gtf infusing well with no residual noted. Jasso cathether in place.yellow clear urine noted. Kept clean and dry. pt repositioned. srx2 up. bed in lowest position. All needs rendered. Will continue to monitor.
[2020-04-04] VITALS: BP 112/62
--- NOTE | 2020-04-04 02:30 | NUR ---
television installer note spoke with shailesh from lab . gentamicin level reported 4.0. will follow up with md in am.
[2020-04-04] MEDS: LANOLIN/MIN OIL/PETROLAT,WHT 3.5 GM TUBE EACHEYE SCH ×4 (03:30→15:30)
[2020-04-04 04:00] VITALS: BP 96/48
--- NOTE | 2020-04-04 04:56 | NUR ---
overnight babysitter note Patient refused wound pictures to be taken. Pt also refused to be cleaned. Offered x3 .Pt still refused.
--- NOTE | 2020-04-04 05:30 | NUR ---
telephone sterilizer note pt refused lab draw. offered x3 . still refused.
--- NOTE | 2020-04-04 06:50 | NUR ---
motor and controls tester note Pt in bed, sleep. Breathing even and unlabored on mechanical vent with no sob or acute distress noted. no s/s of pain noted. no facial grimacing noted. IV lines patent and intact. IV fluids infusing well. Refused to be clean and refused all due meds despite of offering multiple times. Pt also refused lab draw. Jasso cath in place draining yellow clear urine. Peg in placed. GTF infusing well. No residual noted. Srx2 up. Bed in lowest position. All needs rendered. Will endorse to AM nurse for continuity of care.
--- NOTE | 2020-04-04 07:30 | NUR ---
RN OPENING NOTES Patient in bed, [facility], A/Ox4, able to speak with the lips and make his needs known, tolerating vent settings well, no SOB, or resp distress noted. denies pain or discomfort, Jasso cath noted in place, draining yellow clear urine by gravity, IV lines noted on L Hand running NS @75cc/hr, and R FA line, flushed and locked, both lines patent and intact. Tele-monitor readings is SR 67. Safety measures in place, call light in reach, hob elevated, will cont to monitor
[2020-04-04 08:00] VITALS: BP 115/64
[2020-04-04] MEDS: ZINC SULFATE 220 MG CAPSULE JT SCH (08:40)
[2020-04-04] MEDS: CHLORHEXIDINE GLUCONATE 15 ML UDC MM SCH (08:40)
[2020-04-04] MEDS: DOCUSATE SODIUM LIQ 100 MG/10 ML UDC JT SCH ×2 (08:40→09:00)
[2020-04-04] MEDS: ASCORBIC ACID 500 MG TABLET NG SCH (08:40)
[2020-04-04] MEDS: POLYETHYLENE GLYCOL 3350 17 GM POWD.PACK GT SCH ×3 (08:40→17:00)
[2020-04-04] MEDS: THERAHONEY GEL 1.5 OZ TUBE TP SCH (08:42)
[2020-04-04] MEDS: ESCITALOPRAM OXALATE (10 MG) 10 MG TABLET GT SCH (08:45)
--- NOTE | 2020-04-04 09:30 | NUR ---
Patient refused mmorning care, refused stool softener meds, refused eye care
[2020-04-04 12:00] VITALS: BP 121/67
--- NOTE | 2020-04-04 12:00 | NUR ---
Initiate facetime phone call with sister Leslie
[2020-04-04] MEDS: IV NS 0.9% 1,000 ML IV PRN (12:40)
[2020-04-04] MEDS: JEVITY 1.2 CAL 1,000 ML BOTTLE JT PRN (12:41)
[2020-04-04 13:05] LABS: BASOPHILS # (AUTO) 0.1 /CMM (0.0-0.2); EOSINOPHILS % (AUTO) 3.9 % (0.0-6.0); HEMATOCRIT 27 % (39-51); HEMOGLOBIN 8.8 g/dL (13.5-17.5); LYMPHOCYTES # (AUTO) 0.6 /CMM (0.8-4.8); LYMPHOCYTES % (AUTO) 11.1 % (20.0-44.0); MEAN CORPUSCULAR HGB CONC 33 g/dl (31.0-36.0); MEAN CORPUSCULAR VOLUME 89 fL (80-96); MONOCYTES # (AUTO) 0.3 /CMM (0.1-1.30); MONOCYTES % (AUTO) 5.1 % (2.0-12.0); NEUTROPHILS # (AUTO) 3.9 /CMM (1.8-8.9); NEUTROPHILS % (AUTO) 77.9 % (43.0-81.0); PLATELET COUNT (AUTO) 498 /CMM (150-450); RED BLOOD CELL COUNT(AUTO) 3.05 MIL/uL (4.5-6.0); WHITE BLOOD COUNT (AUTO) 5.1 K/uL (4.3-11.0)
[2020-04-04 13:30] LABS: CALCIUM, SERUM 9.1 mg/dL (8.5-10.1); CREATININE 0.4 mg/dL (0.6-1.3); POTASSIUM 4.2 mmol/L (3.5-5.1)
[2020-04-04 13:31] LABS: PHOSPHORUS 3.3 mg/dL (2.5-4.9)
--- NOTE | 2020-04-04 14:30 | NUR ---
Patient refused bed bath, eye care, wound care, education provided x3, still refusing
[2020-04-04 16:00] VITALS: BP 126/74
--- NOTE | 2020-04-04 16:03 | NUR ---
Per pharmacy OK to Give gentamicin
[2020-04-04] MEDS: GENTAMICIN 400 MG in IV D5W 100 ML IV SCH (16:07)
--- NOTE | 2020-04-04 16:30 | NUR ---
Called patient's sister Leslie , informed about pt's discharge
[2020-04-04] MEDS: LEVOFLOXACIN (250MG) 250 MG TABLET PO SCH (17:24)
--- NOTE | 2020-04-04 17:24 | NUR ---
patient refused discharge pictures, education provided x3, still refused
--- NOTE | 2020-04-04 17:30 | NUR ---
REPORT GIVEN TO JAEL REYES RN AT [facility]
--- NOTE | 2020-04-04 18:47 | NUR ---
RN CLOSING NOTES PATIENT REMAINS IN BED, TOLERATING TREATMENT WELL, REFUSED CARE, REFUSED WOUND CARE , REFUSED EYE TREATMENT, REFUSED STOOL SOFTENER, EDUCATION PROVIDED X3, STILL REFUSED, DISCHARGE PAPERWORK PROVIDED , WAITING FOR AMBULANCE TO [facility] AT 1930, WILL ENDORSE TO PM RN SHIFT
--- NOTE | 2020-04-04 19:15 | NUR ---
telegraph mechanic note Received pt in bed. awake a/o x4. Breathing even and unlabored with no sob or acute distress noted on mechanical vent. Denies any pain or discomfort. Gtube in placed. verified placement. barrios catheter noted with clear yellow urine. IV sites patent and intact. IV fluids infusing well. All needs rendered. Srx2 up. Bed in lowest position. Will continue to monitor.
--- NOTE | 2020-04-04 20:15 | NUR ---
automobile insurance claim examiner note Pt discharged in stable condition.a/o x3. VS taken. Left hand IV and right forearm iv site left in place for the facility he's going to. All belonging signed and checked. Pt left unit via gurney accompanied by 2 buyer liaison and 1 RT. Charge nurse aware of discharge.
== END 2020-04-04 21:16 | DRG 720 ==
LOC: ER 17:55 → ICU 22:38 → TELE1 04-01 21:39
PROVIDERS: ADMIT Nurse Practitioner Acute Care; ATTEND Nurse Practitioner Acute Care
PROC: 5A1955Z Respiratory Ventilation, Greater than 96 Consecutive Hours (ICD-10-PCS; principal; 2020-03-30)
DX: A41.9 Sepsis, unspecified organism (principal); I48.20 Chronic atrial fibrillation, unspecified; J96.21 Acute and chronic respiratory failure with hypoxia; R53.2 Functional quadriplegia; Z99.11 Dependence on respirator [ventilator] status; R13.10 Dysphagia, unspecified; Z93.0 Tracheostomy status; Z93.1 Gastrostomy status; F32.9 Major depressive disorder, single episode, unspecified; D68.59 Other primary thrombophilia; Z79.51 Long term (current) use of inhaled steroids; Z79.899 Other long term (current) drug therapy; Z87.11 Personal history of peptic ulcer disease; J15.6 Pneumonia due to other Gram-negative bacteria; D63.8 Anemia in other chronic diseases classified elsewhere; L89.153 Pressure ulcer of sacral region, stage 3; L89.106 Pressure-induced deep tissue damage of unspecified part of back; B96.5 Pseudomonas (aeruginosa) (mallei) (pseudomallei) as the cause of diseases classified elsewhere
CPT/HCPCS: 31720; 36415; 71045-TC; 80048-TC; 80061-TC; 80076-TC; 80170-TC; 80202-TC; 82728-TC; 83605-TC; 83615-TC; 83735-TC; 84100-TC; 84443-TC; 84484-TC; 85025-TC; 85730-TC; 86140-TC; 87040-TC; 87070-TC; 87081-TC; 87186-TC; 94003-TC; 94640-TC; 94760-TC; 94799-TC; 99082-TC; A6403; A7526; G0378; J0456; J1580; J1650; J2185; J2270; J3370; J7030; J7050; J7060; U0003

== ENCOUNTER 2020-04-26 23:46 | Inpatient (IN) | payer OTHER ==
[~2020-04-26] VITALS: Ht 170.2 cm; Wt 48.1 kg
[~2020-04-26 23:46] MED LIST: ACET-868 JT; ALPR0.5T8 JT; ASCO-495 JT; BACL10TA JT; BISA10SU11 RC; CHLO473M5 MM; DOCU50LI JT; ENOX40DI SQ; ESCI10TA JT; HYDR-4384 JT; IPRA3AMP23 IH; LACT-209 JT; LACT10SO JT; MELA3TAB41 JT; METO5SOL JT; MIDO10TA JT; MINE3.5O EACHEYE; ONDA4TAB5 JT; POLY17PO4 JT; SENN-261 JT; ZINC1CAP2 JT
--- NOTE | 2020-04-27 | NUR ---
PT BIBA FROM [facility] FOR GTUBE REPLACEMENT. SITE NOTED W/ REDNESS, SWELLING, AND MINIMAL DRAINAGE. PT COMMUNICATES THRU WRITING, VSS, VENT TRACHE DEPENDENT. PT CONNECTED TO THE AIRFIELD DEFENCE GUARD AND POX
--- NOTE | 2020-04-27 00:01 | NUR ---
rt called to er for for chronic vent pt. pt placed on vent with settings provided by [facility] ac 16 500 40% +5. pt alert ventilated via trach. secure with trach tie. suctioned a small amount of thick ohara secretions. head of bed at 30 degrees. Addendum: 04/27/20 at 0137 by JERICHO ROBERTS RT Amended: Links added.
[2020-04-27] MEDS ORDERED: IV NS 0.9% 500 ML BAG IV ONE (00:30)
--- NOTE | 2020-04-27 00:30 | NUR ---
BLOOD COLLECTED AND SENT TO LAB
--- NOTE | 2020-04-27 00:40 | NUR ---
COVID SWAB COLLECTED AND SENT TO LAB
--- NOTE | 2020-04-27 00:40 | NUR ---
PT REFUSED TO BE CHANGED INTO A [facility]
[2020-04-27 00:45] LABS: BASOPHILS # (AUTO) 0.1 /CMM (0.0-0.2); BASOPHILS % (AUTO) 0.9 % (0.0-2.0); EOSINOPHILS % (AUTO) 7.6 % (0.0-6.0); HEMATOCRIT 29 % (39-51); HEMOGLOBIN 9.7 g/dL (13.5-17.5); LYMPHOCYTES # (AUTO) 1.2 /CMM (0.8-4.8); LYMPHOCYTES % (AUTO) 17.3 % (20.0-44.0); MEAN CORPUSCULAR HGB CONC 33 g/dl (31.0-36.0); MEAN CORPUSCULAR VOLUME 90 fL (80-96); MONOCYTES # (AUTO) 0.5 /CMM (0.1-1.30); NEUTROPHILS # (AUTO) 4.4 /CMM (1.8-8.9); NEUTROPHILS % (AUTO) 66.2 % (43.0-81.0); PLATELET COUNT (AUTO) 194 /CMM (150-450); RED BLOOD CELL COUNT(AUTO) 3.25 MIL/uL (4.5-6.0); WHITE BLOOD COUNT (AUTO) 6.7 K/uL (4.3-11.0)
[2020-04-27 00:52] LABS: CALCIUM, SERUM 10.7 mg/dL (8.5-10.1); CREATININE 0.8 mg/dL (0.6-1.3); POTASSIUM 4.1 mmol/L (3.5-5.1)
--- NOTE | 2020-04-27 00:55 | NUR ---
PATIENT REPOSITIONED FOR COMFORT.
--- NOTE | 2020-04-27 00:56 | NUR ---
VENT SETTINGS: TV: 500 PEEP:5 O2: 40% RATE:16
[2020-04-27] MEDS ORDERED: Z GUARD REMEDY 2 OZ OINT TP PRN (01:30)
[2020-04-27] MEDS ORDERED: MAGNESIUM HYDROXIDE 30 ML UDC PO PRN (01:30)
[2020-04-27] MEDS ORDERED: HYDROCODONE/APAP 5/325MG TABLET PO PRN (01:30)
[2020-04-27] MEDS ORDERED: ACETAMINOPHEN 325 MG TABLET PO PRN (01:30)
[2020-04-27] MEDS ORDERED: ZOLPIDEM TARTRATE 5 MG TABLET PO PRN (01:30)
[2020-04-27] MEDS ORDERED: MAG HYDROX/AL HYDROX/SIMETH 30 ML UDC PO PRN (01:30)
[2020-04-27] MEDS ORDERED: ONDANSETRON HCL/PF 4 MG/2 ML VIAL IVP PRN (01:30)
--- NOTE | 2020-04-27 01:56 | NUR ---
REPORT GIVEN TO CINDY CHENG FOR JENNIFER
--- NOTE | 2020-04-27 02:04 | NUR ---
PT REFUSED GTUBE DRESSING CHANGE. AWARE
--- NOTE | 2020-04-27 07:20 | NUR ---
REPORT GIVEN TO CINDY WALDROP FOR JENNIFER
--- NOTE | 2020-04-27 07:24 | NUR ---
RN TELE1 RECEIVED REPORT OVER THE PHONE FROM ER NURSE, [place], PATIENT IS NOT TRANSPORTED TO THIS FLOOR YET BUT WILL FOLLOW UP WITH FULL ASSESSMENT UPON ARRIVAL.
[2020-04-27 08:00] VITALS: BP 110/53
--- NOTE | 2020-04-27 08:00 | NUR ---
RN TELE1 PATIENT REFUSED TO BE TURNED SO RN WAS UNABLE TO PERFORM FULL SKIN ASSESSMENT. ONLY PICTURE OF DISLODGE G TUBE WAS ALLOWED BY PATIENT.
--- NOTE | 2020-04-27 08:00 | NUR ---
RN TELE1 PATIENT TRANSFERED FROM ER ON STRETCHER BY 2 NURSES AND 2 RTS, NURSE [place] GAVE HANDOFF, PATIENT IS NOW IN BED, RT PUT VENT IN PLACE TOO TRACH AC 16, TV500, FIO2 40%, PEEP 5, O2 SAT 100%, A/O X4, NON VERBAL BUT MOUTHS WORDS AND WRITES OUT SENTENCES, G TUBE DISPLACEMENT AWARE, NPO, IV R FA 18G FROM FACILITY, IV L HAND 18G INTACT CLEAN DRY FLUSHES WELL, URINAL PROVIDED, HISTORY RECEIVED, VITALS TAKEN AND WITHIN NORMAL LIMITS, WILL FOLLOW UP.
[2020-04-27] MEDS ORDERED: TEMA15CA JT (08:54)
[2020-04-27] MEDS: ENOXAPARIN SODIUM 40 MG/0.4 ML DISP.SYRIN SQ SCH (09:00)
--- NOTE | 2020-04-27 09:30 | NUR ---
RN TELE1 CONTACTED MD GREEN, HE SAID TO NOT GIVE LOVENOX DUE TO G TUBE REPLACEMENT PLANNED.
[2020-04-27] MEDS: PANTOPRAZOLE 40 MG VIAL IV SCH (09:53)
[2020-04-27 10:00] VITALS: BP 101/52
[2020-04-27] MEDS: IV D5/0.45 NACL 1,000 ML IV PRN (10:09)
[2020-04-27 12:00] VITALS: BP 103/54
--- NOTE | 2020-04-27 12:12 | NUR ---
WOUND CARE CONSULT: PT PRESENTS WITH SACRAL WOUND (FULL THICKNESS) WITH LARGE AREA OF SCARRING TO PERIWOUND, PRESENT ON ADMISSION. PT IS CACHECTIC. RECOMMEND SURGICAL CONSULT. DR BARTON NOTIFIED OF CONSULT REQUEST. FIRST STEP LOW AIRLOSS MATTRESS IS ON ORDER. RECOMMENDATIONS MADE FOR SKIN PROTECTION. DISCUSSED WITH NURSING STAFF. IN AGREEMENT WITH PLAN OF CARE. Addendum: 04/27/20 at 1214 by DANIELA CARNEY WNDNU Amended: Links added.
[2020-04-27] MEDS ORDERED: MORPHINE SULFATE INJ 2 MG/ML DISP.SYRIN IV PRN (13:00)
--- NOTE | 2020-04-27 14:00 | NUR ---
RN TELE1 CURRICULUM DEVELOPMENT SPECIALIST MARYCRUZ, CAME TO REMOVE THE G TUBE, PATIENT TOLERATED WELL, WAS PREMEDICATED WITH MORPHINE, CLEANED WITH NS, PICTURE TAKEN AND PROVIDED TO MD PARNELL, DRY GAUZE APPLIED AND TAPED WITH PAPER TAPE TO SECURE.
[2020-04-27] MEDS: VANCOMYCIN HCL 0.75 GM in IV D5W 250 ML IV SCH (15:11)
[2020-04-27 16:00] VITALS: BP 100/50
--- NOTE | 2020-04-27 16:00 | NUR ---
RN TELE1 HYDROGEL ADMINISTERED LATE BECAUSE IT WAS NOT STALKED BY PHARMACY YET.
[2020-04-27] MEDS: HYDROGEL DRESSING 90 GM TUBE TP SCH (16:26)
--- NOTE | 2020-04-27 17:33 | NUR ---
RT NOTE PT received trach'd and on [facility] vent w ordered settings. Alarms are set and audible. Vent is plugged into red outlet. Pt sx'd for thin clear secretions. No distress noted t/o shift. Addendum: 04/27/20 at 1734 by GRADY ARREOLA RT Amended: Links added.
[2020-04-27] MEDS ORDERED: PIPERACILLIN /TAZOBACTAM 3.375 G in IV D5W 50 ML IV ONE (18:00)
--- NOTE | 2020-04-27 18:00 | NUR ---
RN TELE1 AIRMATTRESS PUT IN PLACE WITH PSYCHOLOGIST MILITARY PERSONNEL AND OTHER RN ASSISTANCE. PATIENT TOLERATED WELL
--- NOTE | 2020-04-27 19:15 | NUR ---
RECEIVED PT ON BED ASLEEP ON TRACH VENT SETTING ORDERED TOLERATING WELL SPO2 97% HAVE OPEN GTUBE SITE IN LEFT ABDOMEN COVERED WITH GAUZE NO BLEEDING NOTED, HAVE RFA #18 AND LEFT HAND # 18 PATENT AND FLUSHED SINUS RHYTHM HR 60'S ON TELE MONITOR SAFETY MEASURE MAINTAINED BED ON LOWEST POSITION AND LOCKED SIDE RAILS UPX2 CALL LIGHT WITHIN REACH WILL CONT TO MONITOR
--- NOTE | 2020-04-27 19:30 | NUR ---
RN TELE1 PATIENT IN BED NO S/S OF DISTRESS, NON VERBAL BUT MOUTHS WORDS OR WRITES IT DOWN, A/O X3, TRACH SETTINGS UNCHANGED, O2 SAT 99%, TELE MONITOR IN PLACE,SINUS RHYTHM, NPO, R FA 18G, L HAND 18G, CLEAN DRY INTACT, G TUBE REMOVED TODAY, WAITING ON MD ORDER FOR REPLACEMENT, BED IN LOWEST LOCKED POSITION, CALL LIGHT WITHIN REACH, SAFETY MEASURES IN PLACE .
[2020-04-27 20:00] VITALS: BP 95/50
[2020-04-27] MEDS: CHLORHEXIDINE GLUCONATE 15 ML UDC MM SCH (21:36)
[2020-04-27] MEDS: PIPERACILLIN /TAZOBACTAM 3.375 G in IV D5W 100 ML IV SCH (23:07)
--- NOTE | 2020-04-27 23:46 | NUR ---
RT NOTE PT REC'D TRACHED ON [place] VENT ON AC MODE. PT SHOWS NO SIGNS OF RESP DISTRESS OR SOB. PT SX'D FOR THICK MOD AMT OF PALE YELLOW SECRETIONS. ALARMS ARE SET AND AUDIBLE. VENT PLUGGED INTO RED OUTLET. AMBU BAG BEDSIDE. WILL CONTINUE TO MONITOR CLOSELY. Addendum: 04/27/20 at 9358 by FRANKLIN HI RT Amended: Links added.
[2020-04-28] VITALS: BP 114/61
[2020-04-28] MEDS: VANCOMYCIN HCL 0.75 GM in IV D5W 250 ML IV SCH ×2 (01:06→14:19)
[2020-04-28 04:00] VITALS: BP 109/56
[2020-04-28] MEDS: IV D5/0.45 NACL 1,000 ML IV PRN (04:31)
--- NOTE | 2020-04-28 05:21 | NUR ---
LAB DRAWS WAS REFUSED BY THE PT, RISK AND BENEFITS EXPLAINED BUT PT KEEP REFUSING AND GETTING MAD, CHARGE NURSE AWARE WILL TRY AGAIN LATER
--- NOTE | 2020-04-28 07:09 | NUR ---
PT ON BED ASLEEP STILL ON TRACH VENT SETTING PER MD, NO SIGN AND SYMPTOMS OF RESPIARTORY DISTRESS 2/10 PAIN ON LEFT ABDOMEN STILL COMPLAINT ESPECIALLY UPON CHANGING POSITION, ALL NEEDS ATTENDED, TELE MONITOR READS SINUS RHYTHM 70S SAFETY MEASURE MAINTAINED BED ON LOWEST POSITION AND LOCKED SIDE RAILS UP X 2 CALL LIGHT WITHIN REACH WILL ENDORSED TO AM SHIFT NURSE
--- NOTE | 2020-04-28 07:15 | NUR ---
PT ASLEEP W HOB ELEVATED AND VENT SETTINGS ORDERED. NO SIGNS OF DISTRESS. SKIN WARM FLUSHED. SINUS SHAHRZAD 57 ON TELE. WILL CONTINUE TO MONITOR. PT REMAINS NPO PER ORDERS. L HAND RUNNING D5 1/2 NS AT 75ML/HR. R FA FLUSHED INTACT. DRESSINGS DRY INTACT. WILL MONITOR RESPIRATORY STATUS THROUGHOUT DAY AND MONITOR GT STOMA SITE AND REPORT TO MD NEEDED. ALL HOSPITAL POLICY SAFETY PRECAUTIONS IMPLEMENTED AND HOB WILL REMAIN 30 DEGREES OR HIGHER AT ALL TIMES. WILL TURN AND REPOSITION Q2H.
[2020-04-28 08:00] VITALS: BP 108/58
[2020-04-28] MEDS: CHLORHEXIDINE GLUCONATE 15 ML UDC MM SCH ×2 (08:34→20:26)
[2020-04-28] MEDS: PIPERACILLIN /TAZOBACTAM 3.375 G in IV D5W 100 ML IV SCH ×3 (08:34→23:08)
[2020-04-28] MEDS: HYDROGEL DRESSING 90 GM TUBE TP SCH (08:36)
[2020-04-28] MEDS: PANTOPRAZOLE 40 MG VIAL IV SCH (08:36)
[2020-04-28] MEDS: ENOXAPARIN SODIUM 40 MG/0.4 ML DISP.SYRIN SQ SCH ×2 (08:36→09:00)
--- NOTE | 2020-04-28 09:19 | NUR ---
PT REFUSING ORDERED LOVENOX. EDUCATED PT ON REASON FOR MEDICATION AND POTENTIAL COMPLICATIONS THAT MAY OCCUR WITHOUT IT. PT INSISTED ON REFUSING. WILL CONTINUE TO EDUCATE PATIENT THROUGHOUT THE DAY.
[2020-04-28 10:48] LABS: BASOPHILS % (AUTO) 0.8 % (0.0-2.0); EOSINOPHILS % (AUTO) 5.1 % (0.0-6.0); HEMATOCRIT 26 % (39-51); HEMOGLOBIN 8.5 g/dL (13.5-17.5); MEAN CORPUSCULAR HGB CONC 33 g/dl (31.0-36.0); MEAN CORPUSCULAR VOLUME 90 fL (80-96); MONOCYTES # (AUTO) 0.4 /CMM (0.1-1.30); MONOCYTES % (AUTO) 6.7 % (2.0-12.0); NEUTROPHILS # (AUTO) 3.6 /CMM (1.8-8.9); NEUTROPHILS % (AUTO) 68.4 % (43.0-81.0); PLATELET COUNT (AUTO) 185 /CMM (150-450); RED BLOOD CELL COUNT(AUTO) 2.88 MIL/uL (4.5-6.0); WHITE BLOOD COUNT (AUTO) 5.3 K/uL (4.3-11.0)
[2020-04-28 11:03] LABS: CALCIUM, SERUM 9.7 mg/dL (8.5-10.1); CREATININE 0.8 mg/dL (0.6-1.3); PHOSPHORUS 3.9 mg/dL (2.5-4.9); POTASSIUM 3.2 mmol/L (3.5-5.1)
[2020-04-28 11:15] LABS: THYROID STIMULATING HORMONE 1.368 uIU/mL (0.358-3.74)
[2020-04-28 12:00] VITALS: BP 111/57
--- NOTE | 2020-04-28 14:00 | NUR ---
INFORMED DR PARNELL OF PATIENT AND PATIENT'S FAMILY OF WISHES TO START TPN. PT EXPRESSED NOT WANTING ANY FEEDING TUBES THROUGH NOSE OR ORALLY. EXPRESSED WANTING NUTRITION VIA INTRAVENOUS ROUTE. LEFT MESSAGE FOR AWAITING RESPONSE/ORDERS.
[2020-04-28] MEDS: IV D5/ 0.9% NACL 1,000 ML IV PRN ×2 (14:48→23:39)
[2020-04-28] MEDS ORDERED: IV D5/ 0.9% NACL 1,000 ML IV SCH (15:00)
[2020-04-28 16:00] VITALS: BP 93/46
--- NOTE | 2020-04-28 16:00 | NUR ---
PT REFUSED TO BE CLEAN. EDUCATED PATIENT ON BENEFIT OF CLEANING AND INSISTS ON REFUSING. PT ACCEPTED PHOTOS TO BE TAKEN OF GT STOMA. PT AGREES TO ALLOW NURSES TO CLEAN STOMA. EDUCATED PT THAT KEEPING STOMA CLEANSED IS NECESSARY TO ALLOW IT TO HEAL COMPLETELY. WILL ENDORSE TO PM RN. PT AGREES TO LET PM RN CLEAN STOMA SITE. WILL CONTINUE TO FOLLOW UP AND EDUCATE PT. MD UPDATED ON STOMA STATUS. DECREASED IN REDNESS, PT REPORTS MILD TENDERNESS AND PAIN. MILD PINK FLUID ON GAUZE. NO BLEEDING.
--- NOTE | 2020-04-28 18:30 | NUR ---
PT ASLEEP W HOB ELEVATED AND VENT SETTINGS ORDERED. NO SIGNS OF DISTRESS. SKIN WARM FLUSHED. SINUS SHAHRZAD 55-65 ON TELE. CONTINUED TO MONITOR HR THROUGHOUT SHIFT. PT REMAINED NPO PER ORDERS. L HAND RUNNING D5 NS AT 100ML/HR. DRESSINGS DRY INTACT. MONITORED RESPIRATORY STATUS THROUGHOUT DAY AND MONITORED GT STOMA SITE AND REPORTED TO MD NEEDED. ALL HOSPITAL POLICY SAFETY PRECAUTIONS WERE IMPLEMENTED AND HOB WAS 30 DEGREES OR HIGHER AT ALL TIMES. TURNED AND REPOSITION Q2H.
--- NOTE | 2020-04-28 19:22 | NUR ---
RN NOTE RECEIVED PT AWAKE AND ALERT/ORIENTED X 3 IN HIGH COHEN'S POSITION. WITH TRACH CONNECTED TO MECH VENT. RESPIRATIONS EVEN AND UNLABORED, TRACH MID LINE AND IN PLACE, DENIES PAIN OR DISCOMFORT. ABLE TO MAKE NEEDS KNOWN, NSR VIA TELE MONITOR. PT REFUSED TO HAVE GT STOMA ASSESSED DESPITE EXPLANATION OF RISKS AND ADVANTAGES. NPO STATUS MAINTAINED. WITH L HAND IV PATENT AND INTACT WITH IVF RUNNING ORDERED, PLAN OF CARE DISCUSSED, SCD PUMPS IN PLACE, CALL LIGHT WITHIN REACH, SAFETY MEASURES IMPLEMENTED, BED ALARM ON, BED LOCKED AND IN LOW POSITION, SIDE RAILS UP X 2, AMBU BAG AT BEDSIDE, WILL MONITOR PATIENT.
--- NOTE | 2020-04-28 19:37 | NUR ---
RT Pt recv'd on AC settings with SH.6 trach. Trach patent and secured. Pt alert and communicative with no signs of respiratory distress or SOB and will suction PRN. Spare trach and ambu bag at bedside with vent plugged into red outlet with alarms on and audible.
--- NOTE | 2020-04-28 19:43 | NUR ---
RN NOTE PT REFUSED TO BE TURNED AND REPOSITIONED DESPITE EXPLANATION OF RISKS VS ADVANTAGES. Addendum: 04/28/20 at 1954 by RAEANN VILLANUEVA RN STOCK PARTS INSPECTOR PRESENT AT BEDSIDE. PT IS REFUSING TO HAVE VITAL SIGNS TAKEN, OFFERED X 3. EXPLAINED RISKS VS ADVANTAGES BUT STILL REFUSED. PT AGREED TO HAVE MIDNIGHT VITAL SIGNS TAKEN. WILL MONITOR. Addendum: 04/28/20 at 2004 by RAEANN VILLANUEVA RN @1999 PT AGREED TO HAVE VITAL SIGNS TAKEN AT THIS TIME.
[2020-04-28 20:00] VITALS: BP 114/59
[2020-04-29] VITALS (7 sets, daily range): BP systolic 108–130; BP diastolic 53–75
--- NOTE | 2020-04-29 | NUR ---
RN NOTE VITAL SIGNS TAKEN. PT IN SUPINE POSITION WHILE IN HIGH COHEN'S. PT REFUSED TO BE TURNED AND REPOSITIONED.
--- NOTE | 2020-04-29 02:00 | NUR ---
RN NOTE PT HAS IV VANCOMYCIN DUE AT 0200. PT WITH ONLY ONE IV ACCESS WITH ONGOING INFUSION OF ZOSYN IV. PT REFUSED TO HAVE SECOND IV PLACED. WILL WAIT FOR ZOSYN TO FINISH INFUSING BEFORE ADMINISTERING VANCOMYCIN.
[2020-04-29] MEDS: VANCOMYCIN HCL 0.75 GM in IV D5W 250 ML IV SCH ×2 (03:09→13:34)
--- NOTE | 2020-04-29 03:39 | NUR ---
RN NOTE RT AT BEDSIDE STATES THAT PATIENT REFUSED TO BE SUCTIONED, REFUSED TRACH DRESSING AND TRACH TIE CHANGE.
--- NOTE | 2020-04-29 04:00 | NUR ---
RN NOTE OFFERED TO CHANGE PT, GIVE COMPLETE BED BATH AND LINEN CHANGE. PT REFUSED AT THIS TIME. EXPLAINED THE NEED TO ASSESS SACRAL WOUND AND GT STOMA BUT PT REFUSED DESPITE EXPLANATION OF RISKS AND ADVANTAGES.
[2020-04-29] MEDS: HYDROCODONE/APAP 5/325MG TABLET PO PRN ×2 (04:21→04:23)
--- NOTE | 2020-04-29 04:25 | NUR ---
RN NOTE PT COMPLAINED OF 4/10 GENERALIZED BODY PAIN. OFFERED NORCO TO WHICH PT AGREED. MEDICATION WAS PULLED FROM OMNICEL AND OFFERED TO PT AT BEDSIDE. PT THEN REFUSED MEDICATION STATING HE DOES NOT WANT MEDICATION AT THIS TIME. MEDICATION RETURNED TO OMNICE WITNESSED BY CINDY VILLALOBOS.
--- NOTE | 2020-04-29 05:42 | NUR ---
RN NOTE PROGRAM SCHEDULE CLERK AT BEDSIDE. PT IS REFUSING TO HAVE BLOOD DRAWN DESPITE EXPLANATION OF RISKS VS BENEFITS. PT AGREED TO HAVE BLOOD DRAWN LATER.
--- NOTE | 2020-04-29 06:56 | NUR ---
RN NOTE NO ACUTE CHANGES OBSERVED OVERNIGHT. PT SLEEPING COMFORTABLY IN HIGH COHEN'S POSITION. RESPIRATIONS EVEN AND UNLABORED WITH CURRENT VENT SETTINGS. NO SIGNS OF PAIN OR DISCOMFORT. PT REFUSED TO BE CHANGED OR TO BE TURNED AND REPOSITIONED DURING SHIFT. ALSO UNABLE TO ASSESS GT STOMA SITE AND SACRAL WOUND DUE TO PT'S REFUSAL. IV FLUIDS RUNNING ORDERED WITHOUT SIGNS OF COMPLICATIONS NOTED AT SITE. NPO STATUS MAINTAINED. SCD PUMPS ON. CALL LIGHT WITHIN REACH, SAFETY MEASURES IN PLACE PER PROTOCOL, BED ALARM ON, BED LOCKED AND IN LOW POSITION, SIDE RAILS UP X 2, AMBU BAG AT BEDSIDE, ENDORSED TO MORNING RN FOR JENNIFER.
--- NOTE | 2020-04-29 07:35 | NUR ---
PT ASLEEP W HOB ELEVATED AND VENT SETTINGS ORDERED. NO SIGNS OF DISTRESS. SKIN WARM FLUSHED. SINUS SHAHRZAD 50-60S ON TELE. WILL CONTINUE TO MONITOR. PT REMAINS NPO PER ORDERS. L HAND RUNNING D5 NS AT 100ML/HR. DRESSING DRY INTACT. WILL MONITOR RESPIRATORY STATUS THROUGHOUT DAY AND MONITOR GT STOMA SITE AND REPORT TO MD NEEDED. ALL HOSPITAL POLICY SAFETY PRECAUTIONS IMPLEMENTED AND HOB WILL REMAIN 30 DEGREES OR HIGHER AT ALL TIMES. WILL TURN AND REPOSITION Q2H. WILL EDUCATE PT ON IMPORTANCE OF KEEPING STOMA CLEAN AND TURNING AND REPOSITIONING Q2H.
[2020-04-29] MEDS: PIPERACILLIN /TAZOBACTAM 3.375 G in IV D5W 100 ML IV SCH ×2 (08:41→16:34)
[2020-04-29] MEDS: FAMOTIDINE/PF INJ 20 MG/2 ML VIAL IV SCH ×2 (08:42→20:44)
[2020-04-29] MEDS: ENOXAPARIN SODIUM 40 MG/0.4 ML DISP.SYRIN SQ SCH (08:42)
[2020-04-29] MEDS: CHLORHEXIDINE GLUCONATE 15 ML UDC MM SCH ×2 (08:42→20:44)
[2020-04-29] MEDS: HYDROGEL DRESSING 90 GM TUBE TP SCH (08:42)
[2020-04-29] MEDS: IV D5/ 0.9% NACL 1,000 ML IV PRN (09:54)
[2020-04-29 13:16] LABS: BASOPHILS % (AUTO) 0.8 % (0.0-2.0); EOSINOPHILS % (AUTO) 3.6 % (0.0-6.0); HEMATOCRIT 26 % (39-51); HEMOGLOBIN 8.6 g/dL (13.5-17.5); LYMPHOCYTES # (AUTO) 1.2 /CMM (0.8-4.8); LYMPHOCYTES % (AUTO) 31.9 % (20.0-44.0); MEAN CORPUSCULAR HGB CONC 33 g/dl (31.0-36.0); MEAN CORPUSCULAR VOLUME 90 fL (80-96); MONOCYTES # (AUTO) 0.3 /CMM (0.1-1.30); MONOCYTES % (AUTO) 8.2 % (2.0-12.0); NEUTROPHILS # (AUTO) 2.1 /CMM (1.8-8.9); NEUTROPHILS % (AUTO) 55.5 % (43.0-81.0); PLATELET COUNT (AUTO) 187 /CMM (150-450); RED BLOOD CELL COUNT(AUTO) 2.91 MIL/uL (4.5-6.0); WHITE BLOOD COUNT (AUTO) 3.8 K/uL (4.3-11.0)
[2020-04-29 13:36] LABS: CALCIUM, SERUM 9.4 mg/dL (8.5-10.1); CREATININE 0.8 mg/dL (0.6-1.3); MAGNESIUM 1.8 mg/dL (1.8-2.4); PHOSPHORUS 3.4 mg/dL (2.5-4.9)
[2020-04-29 13:38] LABS: POTASSIUM 2.8 mmol/L (3.5-5.1)
--- NOTE | 2020-04-29 13:39 | NUR ---
CRITICAL LAB VALUE POTASSIUM 2.8 RECEIVED FROM LAB. WEB APPLICATIONS ADMINISTRATOR MADE AWARE. AWAITING ORDERS.
[2020-04-29] MEDS ORDERED: TPN/PPN PER PHARMACY XX PRN (14:00)
[2020-04-29] MEDS ORDERED: Potassium Chloride 20 MEQ in IV D5/0.45 NACL 1,000 ML IV PRN (14:00)
[2020-04-29] MEDS ORDERED: DEXTROSE 50%-WATER 50 ML DISP.SYRIN IV PRN (15:00)
[2020-04-29] MEDS ORDERED: INSULIN REGULAR, HUMAN 100 UNIT/ML 3 ML VIAL SQ PRN (15:00)
--- NOTE | 2020-04-29 15:49 | NUR ---
PT TRANSFERED TO MS3 VIA BED WITH RT BEDSIDE TO ASSIST WITH VENTILATOR. ALL BELONGINGS BROUGHT. FAMILY MADE AWARE.
[2020-04-29] MEDS: POTASSIUM CL. PREMIX PERIPHER. 50 ML IV SCH (16:44)
[2020-04-29] MEDS: BLOOD SUGAR DIAGNOSTIC 1 EACH STRIP IN SCH ×3 (17:14→22:00)
--- NOTE | 2020-04-29 17:15 | NUR ---
NON ADMIN FOR ACCU CHECK PT REMAINS NPO BC TPN HAS NO STARTED.
[2020-04-29] MEDS ORDERED: TPN BAG #1 IV PRN ×2 (18:00)
--- NOTE | 2020-04-29 19:00 | NUR ---
PT ASLEEP W HOB ELEVATED AND VENT SETTINGS ORDERED. NO SIGNS OF DISTRESS. SKIN WARM FLUSHED. SINUS SHAHRZAD 50-60 ON TELE. WILL CONTINUE TO MONITOR. PT REMAINS NPO PER ORDERS. AWAITING PICC PLACEMENT ORDERED AND PT REFUSES INSERTION OF NEW PIV. PROM BURN OFF OPERATOR AND PHARMACY MADE AWARE PT UNABLE TO RECEIVED ORDERED IVF MEDICATION AND FLUIDS. PT REPORTS WILLING TO WAIT FOR PICC THE PIV ARE UNCOMFORTABLE AND REFUSES INSERTION. MONITORED RESPIRATORY STATUS THROUGHOUT DAY AND MONITORED GT STOMA SITE AND REPORTED TO MD NEEDED. ALL HOSPITAL POLICY SAFETY PRECAUTIONS IMPLEMENTED AND HOB REMAINED 30 DEGREES OR HIGHER AT ALL TIMES. REFUSED TO TURN AND REPOSITION Q2H. EDUCATED PT ON IMPORTANCE OF KEEPING STOMA CLEAN AND TURNING AND REPOSITIONING Q2H. REFUSED TO ALLOW WOUND CARE FOR STOMA. PROM BURN OFF OPERATOR AND FAMILY AWARE. ENDORSED PLAN OF CARE TO PM RN.
--- NOTE | 2020-04-29 19:01 | NUR ---
RN NOTE RECEIVED PATIENT IN BED, AO X 4, UNDERSTANDS LATVIAN, BUT COMMUNICATES VIA PEN AND PAPER. PATIENT IN NO S/SX OF ACUTE DISTRESS AT THIS TIME. PATIENT'S BREATHING IS EVEN AND UNLABORED. PATIENT IS ON TRACH WITH SETTINGS PRESCRIBED, TOLERATING WELL SATURATING AT 100%. PATIENT ON TELE MONITOR READING SB, HR IS 59. IV SITE AT L HAND 18G CLOGGED PER CLAIRE WHITE, WITH ORDERS FOR PICC LINE INSERTION. WOUND DRESSING AT PREVIOUS GTUBE SITE INSERTION DRY AND INTACT. PATIENT IS BEDBOUND WITH URINAL AT BEDSIDE. SAFETY MEASURES IMPLEMENTED PER PROTOCOL. PATIENT BED ALARM IS ON. HEAD OF BED ELEVATED. BED IS LOCKED, IN LOWEST POSITION AND SIDE RAILS UP. CALL LIGHT WITHIN REACH OF THE PATIENT. WILL CONTINUE TO MONITOR AND REASSESS FOR ANY CHANGES. Addendum: 04/30/20 at 0206 by MANJEET VALENTIN RN NOTED INFUSION OF FIRST BAG OF POTASSIUM 10 MEQS WITH 25ML REMAINING IN BAG. UNABLE TO CONTINUE POTASSIUM REPLACEMENT, AND UNABLE TO ADMINISTER DUE IV MEDICATIONS DUE TO LACK OF IV LINE. AWAITING PICC LINE INSERTION. APPLICATIONS SYSTEMS ENGINEER MADE AWARE. ATTEMPTED TO REINSERT PERIPHERAL IV FOR NOW, HOWEVER, PATIENT REFUSED AFTER SEVERAL ATTEMPTS. WILL TRY AGAIN LATER.
--- NOTE | 2020-04-29 22:00 | NUR ---
RN NOTE ASKED PATIENT IF OK TO INSERT IV LINE HE NEEDS IT FOR IV MEDICATIONS WHILE WAITING FOR PICC LINE INSERTION. PATIENT REFUSED. MONOTYPE KEYBOARD OPERATOR MADE AWARE. DR PALOMO NOTIFIED. WAS ADVISED TO TRY AGAIN AND REINSERT IV LINE IOF PATIENT AGREES.
[2020-04-30] VITALS: BP 142/80
--- NOTE | 2020-04-30 00:30 | NUR ---
RN NOTE PATIENT STATED OK TO INSERT IV LINE BUT REFUSES TO REPOSITION LEFT ARM FOR BETTER VIEW OF VEINS USING VEIN SCANNER. WILL TRY AGAIN LATER.
--- NOTE | 2020-04-30 01:40 | NUR ---
RN NOTE PATIENT VOLUNTARILY ASKED PRIMARY RN TO INSERT IV LINE. EXPLAINED TO PATIENT IMPORTANCE OF IV LINE FOR HIS MEDICATIONS. MELT DOWN FURNACE OPERATOR REINSERTED IV LINE AT LEFT FOREARM 20G. PATENT AND FLUSHING. RESTARTED INFUSION OF KCL 10 MEQ AT 25 ML/HR WITH NS INFUSING AT 50 ML/HR TO PREVENT BURNING PAIN AT IV SITE. DUE IV ANTIBIOTICS ADMINISTERED ON SEPARATE PORT. WILL CONTINUE TO MONITOR.
[2020-04-30] MEDS: PIPERACILLIN /TAZOBACTAM 3.375 G in IV D5W 100 ML IV SCH ×3 (01:59→16:20)
[2020-04-30] MEDS: POTASSIUM CL. PREMIX PERIPHER. 50 ML IV SCH ×5 (02:01→18:25)
[2020-04-30] MEDS: VANCOMYCIN 500 MG in IV D5W 100ml IV SCH ×2 (02:11→14:20)
--- NOTE | 2020-04-30 03:28 | NUR ---
RN NOTE PATIENT STILL COMPLAINS OF BURNING PAIN AT IV SITE, DEMANDS TO STOP ONGOING IV INFUSION OF SECOND BAG KCL 10MEQS, OTHERWISE HE WILL PULL OUT THE IV LINE. STOPPED INFUSION OF SECOND BAG KCL 10MEQS. FARMWORKER ANIMAL NOTIFIED.
[2020-04-30 04:00] VITALS: BP 127/78
--- NOTE | 2020-04-30 05:17 | NUR ---
RN NOTE PER BACILIO WERNER, PATIENT REFUSED BETHBATH AND COMPLETE LINEN CHANGE. PATIENT HAS BEEN IRRITABLE AND REFUSING EVERYTHING. WELDING PRODUCTION SUPERVISOR MADE AWARE. Addendum: 04/30/20 at 0519 by MANJEET VALENTIN RN ERRATUM: PATIENT REFUSED BEDBATH
[2020-04-30] MEDS: BLOOD SUGAR DIAGNOSTIC 1 EACH STRIP IN SCH ×3 (07:21→17:18)
--- NOTE | 2020-04-30 07:45 | NUR ---
PROFESSIONAL SKATER NOTE PATIENT IN BED RESTING COMFORTABLY. PATIENT IN NO ACUTE DISTRESS. NO SOB NOTED. PATIENT BREATHING IS EVEN AND UNLABORED. PATIENT ON VENT TOLERATING VENT SETTINGS WELL. PATIENT HOB IS ELEVATED. SAFETY PRECAUTIONS IN PLACE. PATIENT ON CARDIAC MONITORING READING SINUS BRADYCARDIA HR 53. PATIENT REFUSING AM LABS DESPITE EDUCATION OF RISKS VS BENEFITS. PATIENT DOES NOT WANT TO CONTINUE IV POTASSIUM AT THIS TIME, WILL TRY AGAIN LATER. PATIENT BED IS LOCKED AND IN LOWEST POSITION. BED ALARM IS ON. CALL LIGHT WITHIN REACH. WILL CONTINUE TO MONITOR.
[2020-04-30 08:00] VITALS: BP 124/60
[2020-04-30] MEDS: CHLORHEXIDINE GLUCONATE 15 ML UDC MM SCH ×2 (08:30→21:32)
[2020-04-30] MEDS: ENOXAPARIN SODIUM 40 MG/0.4 ML DISP.SYRIN SQ SCH (08:30)
[2020-04-30] MEDS: FAMOTIDINE/PF INJ 20 MG/2 ML VIAL IV SCH ×2 (08:30→21:32)
[2020-04-30] MEDS: HYDROGEL DRESSING 90 GM TUBE TP SCH (10:12)
--- NOTE | 2020-04-30 10:36 | NUR ---
CREDIT UNION TELLER NOTE PATIENT CONTINUED TO REFUSE AM LAB DRAW. PATIENT WROTE ON PAPER HE WANTS LABS IN THE AFTERNOON AND IS REFUSING THE POTASSIUM IV REPLACEMENT AND FLUIDS AT THIS TIME. I EDUCATED RISKS VS BENEFITS 3X, PATIENT CONTINUED TO REFUSE.
--- NOTE | 2020-04-30 11:23 | NUR ---
BASEBALL GLOVE SHAPER NOTE PATIENT REFUSING TO HAVE FORMER GTUBE SITE ASSESSED. PATIENT SUCTIONED PRN. PATIENT STATES NO PAIN AT THIS TIME.
--- NOTE | 2020-04-30 11:38 | NUR ---
HEEL ATTACHER WOOD NOTE PATIENT BLOOD SUGAR IS 74. NO INSULIN COVERAGE PER PROTOCOL. INFORMED PATIENT OF IMPORTANCE IN GETTING BLOOD FOR AM LABS. PATIENT GOT AGITATED AND REFUSED. PATIENT CONTINUED TO REFUSE DESPITE EDUCATION OF RISKS VS BENEFITS.
[2020-04-30 12:00] VITALS: BP 119/75
--- NOTE | 2020-04-30 12:15 | NUR ---
TRACK HELPER NOTE SPOKE WITH SILVER HERNANDEZ ABOUT PATIENTS NONCOMPLIANCE WITH CARE. SILVER HERNANDEZ IS AWARE. INFORMED SILVER OF PATIENT BEING NONAGREEABLE WITH IV REPLACEMENTS FROM YESTERDAY. SHE IS AWARE PER SILVER JUST MONITOR AND WAIT FOR PICC LINE INSERTION.
--- NOTE | 2020-04-30 13:20 | NUR ---
FOUNDRY WORKER APPRENTICE NOTE PICC LINE INSERTED BY OSCAR GONSALEZ ON RIGHT ARM. PATIENT TOLERATED WELL AND IS AGREEABLE TO IV ANTIBIOTICS. PATIENT AGREED FOR PREVIOUS AM LAB DRAW. SPOKE WITH BREE FROM PHARMACY, DURAN MOREIRA DO NOT GIVE PREVIOUS OLD IV POTASSIUM REPLACEMENT BAGS FROM YESTERDAY. WAIT FOR LAB DRAW RESULTS FOR TODAYS POTASSIUM AND REASSESS FROM THERE. Addendum: 04/30/20 at 1334 by ADRY ELIZALDE RN FOUNDRY WORKER APPRENTICE NOTE PICC LINE INSERTED BY OSCAR GONSALEZ ON RIGHT ARM. PATIENT TOLERATED WELL AND IS AGREEABLE TO IV ANTIBIOTICS. PATIENT AGREED FOR PREVIOUS AM LAB DRAW. SPOKE WITH BREE FROM PHARMACY, DURAN MOREIRA DO NOT GIVE PREVIOUS OLD IV POTASSIUM REPLACEMENT BAGS FROM YESTERDAY. DURAN MOREIRA LEAVE OLD EMAR SCHEDULED IV POTASSIUM REPLACEMENT ALONE. WAIT FOR LAB DRAW RESULTS FOR TODAYS POTASSIUM AND REASSESS FROM THERE.
--- NOTE | 2020-04-30 13:42 | NUR ---
ASSESSMENT COUNSELOR NOTE SPOKE WITH JENA FROM PHARMACY ABOUT BLOOD SUGAR CHECKS WITH TPN. PER JENA SHE STATED PER TPN PROTOCOL IT SHOULD BE Q6H MILD SLIDING SCALE BLOOD SUGAR CHECKS.
[2020-04-30 13:46] LABS: BASOPHILS % (AUTO) 0.9 % (0.0-2.0); EOSINOPHILS % (AUTO) 2.2 % (0.0-6.0); HEMATOCRIT 25 % (39-51); HEMOGLOBIN 8.1 g/dL (13.5-17.5); LYMPHOCYTES # (AUTO) 1.1 /CMM (0.8-4.8); LYMPHOCYTES % (AUTO) 25.9 % (20.0-44.0); MEAN CORPUSCULAR HGB CONC 33 g/dl (31.0-36.0); MEAN CORPUSCULAR VOLUME 90 fL (80-96); MONOCYTES # (AUTO) 0.3 /CMM (0.1-1.30); MONOCYTES % (AUTO) 6.6 % (2.0-12.0); NEUTROPHILS # (AUTO) 2.8 /CMM (1.8-8.9); NEUTROPHILS % (AUTO) 64.4 % (43.0-81.0); PLATELET COUNT (AUTO) 204 /CMM (150-450); RED BLOOD CELL COUNT(AUTO) 2.72 MIL/uL (4.5-6.0); WHITE BLOOD COUNT (AUTO) 4.3 K/uL (4.3-11.0)
[2020-04-30] MEDS ORDERED: DEXTROSE 50%-WATER 50 ML DISP.SYRIN IV PRN (14:00)
[2020-04-30] MEDS ORDERED: INSULIN REGULAR, HUMAN 100 UNIT/ML 3 ML VIAL SQ PRN (14:00)
[2020-04-30 14:17] LABS: ALBUMIN 2.8 g/dL (3.4-5.0); CALCIUM, SERUM 9.3 mg/dL (8.5-10.1); CREATININE 0.6 mg/dL (0.6-1.3); MAGNESIUM 1.7 mg/dL (1.8-2.4); PHOSPHORUS 3.3 mg/dL (2.5-4.9); POTASSIUM 2.9 mmol/L (3.5-5.1)
[2020-04-30 14:19] LABS: PREALBUMIN 21.2 MG/DL (18.0-35.7)
[2020-04-30] MEDS ORDERED: Magnesium 1GM/D5W 100ML PREMIX 100 ML IV SCH (15:00)
[2020-04-30] MEDS ORDERED: POTASSIUM CL. PREMIX PERIPHER. 50 ML IV SCH (15:00)
[2020-04-30] MEDS ORDERED: Magnesium 1GM/D5W 100ML PREMIX 50 ML IV SCH (15:00)
--- NOTE | 2020-04-30 15:05 | NUR ---
ESOL INSTRUCTOR NOTE PATIENT AGREEABLE TO IV POTASSIUM REPLACEMENT AND IV MAG REPLACMENT AT THIS TIME.
[2020-04-30 15:16] LABS: LYMPHOCYTES % (MANUAL) 24 % (16-48); MONOCYTES % (MANUAL) 3 % (0-11.0); NEUTROPHILS % (MANUAL) 73 (42-76)
[2020-04-30 16:00] VITALS: BP 121/65
--- NOTE | 2020-04-30 17:20 | NUR ---
FARM MANAGEMENT SUPERVISOR NOTE PER JENA FROM PHARMACY MAKE SURE TO GIVE ALL IV POTASSIUM REPLACEMENT BEFORE STARTING TPN.
--- NOTE | 2020-04-30 17:27 | NUR ---
STONE SETTER NOTE PATIENT BLOOD SUGAR IS 67. NO INSULIN COVERAGE NEEDED PER PROTOCOL.
[2020-04-30] MEDS ORDERED: Potassium Chloride 20 MEQ in IV D5/0.45 NACL 1,000 ML IV PRN (18:00)
--- NOTE | 2020-04-30 18:45 | NUR ---
SLIP FILLER NOTE PATIENT IN BED RESTING COMFORTABLY. PATIENT IN NO ACUTE DISTRESS. NO SOB NOTED. PATIENT BREATHING IS EVEN AND UNLABORED. PATIENT ON VENT TOLERATING VENT SETTINGS WELL. PATIENT HOB IS ELEVATED. SAFETY PRECAUTIONS IN PLACE. PATIENT ON CARDIAC MONITORING READING SINUS BRADYCARDIA HR 56. PATIENT KEPT CLEAN, DRY, AND COMFORTABLE THROUGHOUT SHIFT. PATIENT REFUSED TURNING AND REPOSITIONING DURING SHIFT DESPITE EDUCATION OF RISKS VS BENEFITS. PATIENT ONLY ALLOWED ONCE FOR GAUZE TO BE CHANGED ON STOMA SITE. PATIENT CURRENTLY FINISHING LAST BAG OF IV POTASSIUM REPLACEMENT. ONCE COMPLETE TPN CAN BE STARTED AND WILL ENDORSE TO MONITOR WORKER RN TO START TPN. PATIENT BED IS LOCKED AND IN LOWEST POSITION. BED ALARM IS ON. CALL LIGHT WITHIN REACH. WILL ENDORSE CARE TO PM SHIFT FOR JENNIFER.
--- NOTE | 2020-04-30 19:30 | NUR ---
INDUSTRIAL SAFETY ENGINEER NOTES RECEIVED ON BED A/O X 3-4,ON TRACH TO VENT,SETTINGS TOLERATED WELL,AC-16,TV-500,FIO2-40%,PEEP-5,SHILEY #6.WITH OL GT STOMA,DRESSING INTACT AND DRY.ABLE TO VERBALIZED THRU MOUTH WORDS.WITH RIGHT UPPER ARM PICC LINE FOR MEDS.SALINE LOCK LF #20 INTACT AND PATENT.DVT PUMP REFUSED.ON SPECIALTY MATTRESS FOR SKIN MANAGEMENT.CALL LIGHT IN REACH,NEEDS ANTICIPATED.
[2020-04-30 20:00] VITALS: BP 144/86
--- NOTE | 2020-04-30 20:09 | NUR ---
SUBGRADE TESTER NOTES STARTED ON TPN 1000ML AT 40ML/HR RATE,ALONG WITH IVF D5 1/2 NS WITH 20MEQ AT 60ML/HR RATE, A TOTAL OF 100ML/HR RATE,INFUSING VIA IV PUMP ON WHITE PORT PICC LINE.
[2020-04-30 22:02] LABS: BILIRUBIN,URINE NEGATIVE (NEGATIVE); BLOOD, URINE NEGATIVE Ery/uL (NEGATIVE); COLOR,URINE YELLOW (YELLOW); LEUKOCYTE ESTERASE ,URINE NEGATIVE (NEGATIVE); NITRITE, URINE NEGATIVE (NEGATIVE); PROTEIN,URINE NEGATIVE (NEGATIVE); UGLUCOSE NEGATIVE (NEGATIVE); UROBILINOGEN,URINE 0.2 EU/dL (0.2)
[2020-04-30 22:36] LABS: CREATININE, URINE 31.5 MG/DL (30.0-125.0)
[2020-04-30 22:38] LABS: EOSINOPHIL,URINE None Seen
[2020-05-01] VITALS (8 sets, daily range): BP systolic 107–145; BP diastolic 62–79
--- NOTE | 2020-05-01 | NUR ---
BAKERY MANAGER NOTES LINH CARD
[2020-05-01] MEDS: PIPERACILLIN /TAZOBACTAM 3.375 G in IV D5W 100 ML IV SCH ×4 (00:21→23:16)
[2020-05-01] MEDS: BLOOD SUGAR DIAGNOSTIC 1 EACH STRIP IN SCH ×4 (00:22→18:00)
--- NOTE | 2020-05-01 00:30 | NUR ---
DOOR MANAGER NOTES ACCU-CHECK BLOOD SUGAR CHECK 94,NO INSULIN COVERAGE
[2020-05-01] MEDS: VANCOMYCIN 500 MG in IV D5W 100ml IV SCH ×2 (02:03→13:36)
--- NOTE | 2020-05-01 04:34 | NUR ---
RT Pt recv'd on AC settings with Tammy 6 trach. Trach is patent and secured. Pt alert and communicative with no signs of respiratory distress or SOB throughout shift and suction done PRN. Spare trach and ambu bag at bedside with vent plugged into red outlet with alarms on and audible.
--- NOTE | 2020-05-01 05:30 | NUR ---
DONOR SERVICES SPECIALIST NOTES ACCU-CHECK BLOOD SUGAR CHECK REFUSED THIS TIME.EXPLAINED THE NEED OF BLOOD SUGAR CHECK,PATIENT ON TPN,STILL REFUSED.
--- NOTE | 2020-05-01 05:44 | NUR ---
IRONER NOTES ALPHONSO RIBERA OFFERED MORNING CARE BUT REFUSED.HE WANTS TO SLEEP.MORE.
--- NOTE | 2020-05-01 05:45 | NUR ---
SENIOR MANAGER CREATIVE SERVICES NOTES REFUSED BLOOD DRAW THIS MORNING.HE WANTS IT AT 12 NOON.
--- NOTE | 2020-05-01 07:09 | NUR ---
INVESTMENT EXECUTIVE NOTES NO SIGNIFICANT CHANGE IN STATUS,NON COMPLIANT WITH CARE.TPN IN PROGRESS,IVF INFUSING.IN NO ACUTE DISTRESS.WILL ENDORSE TO DAY NURSE FOR JENNIFER
--- NOTE | 2020-05-01 07:30 | NUR ---
RN OPENING NOTE THE [id number] IS RECEIVED IN BED. PATIENT IS VENT/TRACH PATIENT AND TOLERATES THE SETTING WELL. PATIENT IS ALERT AND ORIENTED X4 AND ABLE TO MOUTH WORDS. DENIES PAIN. PATIENT IS IN NO APPARENT DISTRESS. PATIENT IS CONTINENT. RIGHT UPPER ARM PICC LINE PATENT AND TPN INFUSING AT 40 ML/HR AND NO S/S INFILTRATION NOTED. LFA G 20 PATENT AND D5 1/2 NS WITH 20 MEQ INFUSING AT 60 ML/HR AND NO S/S INFILTRATION NOTED. BED LOW AND LOCKED. SIDE RAILS UP X3. CALL LIGHT WITHIN REACH. WILL CONTINUE TO MONITOR.
--- NOTE | 2020-05-01 07:31 | NUR ---
BROADBAND INSTALLER BOX READING TELE BOX READING IS SINUS BRADYCARDIA 50. THE PATIENT IS IN NO APPARENT DISTRESS.
[2020-05-01] MEDS: FAMOTIDINE/PF INJ 20 MG/2 ML VIAL IV SCH ×2 (08:53→20:15)
[2020-05-01] MEDS: CHLORHEXIDINE GLUCONATE 15 ML UDC MM SCH ×2 (08:53→20:20)
[2020-05-01] MEDS: ENOXAPARIN SODIUM 40 MG/0.4 ML DISP.SYRIN SQ SCH (09:00)
[2020-05-01] MEDS: HYDROGEL DRESSING 90 GM TUBE TP SCH (09:01)
--- NOTE | 2020-05-01 10:13 | NUR ---
RN REFUSED LOVENOX PATIENT REFUSED LOVENOX 40 MG SB WHICH WAS ORDERED FOR 0900. EXPLAINED RISKS AND BENEFITS, HOWEVER, THE PATIENT STILL REFUSED. WILL INFORM MD.
--- NOTE | 2020-05-01 13:14 | NUR ---
RN REFUSED BLOOD SUGAR CHECK THE PATIENT REFUSED BLOOD SUGAR CHECK SCHEDULED AT 1200. EXPLAINED RISKS AND BENEFITS MULTIPLE TIMES, HOWEVER, THE PATIENT STILL REFUSED. FRANSISCA HERNANDEZ IS MADE AWARE OF PATIENT REFUSAL OF BLOOD SUGAR CHECKS AND LOVENOX. PER LABORATORY EQUIPMENT CLEANER NO NEW ORDERS.
[2020-05-01 13:23] LABS: BASOPHILS # (AUTO) 0.1 /CMM (0.0-0.2); BASOPHILS % (AUTO) 1.4 % (0.0-2.0); EOSINOPHILS % (AUTO) 2.1 % (0.0-6.0); HEMATOCRIT 25 % (39-51); HEMOGLOBIN 8.2 g/dL (13.5-17.5); LYMPHOCYTES # (AUTO) 1.1 /CMM (0.8-4.8); LYMPHOCYTES % (AUTO) 25.4 % (20.0-44.0); MEAN CORPUSCULAR HGB CONC 33 g/dl (31.0-36.0); MEAN CORPUSCULAR VOLUME 89 fL (80-96); MONOCYTES # (AUTO) 0.3 /CMM (0.1-1.30); NEUTROPHILS # (AUTO) 2.6 /CMM (1.8-8.9); NEUTROPHILS % (AUTO) 63.1 % (43.0-81.0); PLATELET COUNT (AUTO) 212 /CMM (150-450); RED BLOOD CELL COUNT(AUTO) 2.77 MIL/uL (4.5-6.0); WHITE BLOOD COUNT (AUTO) 4.2 K/uL (4.3-11.0)
[2020-05-01 13:33] LABS: CALCIUM, SERUM 9.1 mg/dL (8.5-10.1); CREATININE 0.6 mg/dL (0.6-1.3); MAGNESIUM 1.8 mg/dL (1.8-2.4); POTASSIUM 3.1 mmol/L (3.5-5.1)
[2020-05-01] MEDS ORDERED: TPN BAG #2 IV PRN ×2 (14:30)
[2020-05-01] MEDS: POTASSIUM CL. PREMIX PERIPHER. 50 ML IV SCH ×4 (15:51→22:16)
[2020-05-01] MEDS: FAT EMULSION 20% 500 ML in PREMIX 1 EA IV SCH ×2 (17:04→17:05)
--- NOTE | 2020-05-01 18:30 | NUR ---
RN NOTE THE PATIENT HAS REFUSED ANY SKIN TREATMENT, SKIN CARE, TURNING OR REPOSITIONING DURING THE SHIFT DESPITE EXPLAINING RISKS AND BENEFITS MULTIPLE TIMES. FRANSISCA HERNANDEZ IS MADE AWARE.
--- NOTE | 2020-05-01 18:43 | NUR ---
RN NOTE REFUSED BLOOD SUGAR DUE AT 1800. PATIENT IS GIVEN RISKS AND BENEFITS BUT THE PATIENT STILL REFUSED. FRANSISCA HERNANDEZ IS AWARE. THE PATIENT IS IN N APPARENT DISTRESS.
--- NOTE | 2020-05-01 18:47 | NUR ---
RN NOTE WAITING FOR THE PHARMACY TO DELIVER POTASSIUM CHLORIDE 20 MEW D5 1/2 NS. FOLLOW UP CALL TO PHARMACY IS MADE AWARE.
--- NOTE | 2020-05-01 18:52 | NUR ---
RN CLOSING NOTE THE PATIENT IS ALERT AND ORIENTED X4. THE PATIENT IS A VENT AND TRACH PATIENT AND HE TOLERATES IT WELL. THE PATIENT DENIES PAIN. IN NO APPARENT DISTRESS. TELE BOX READING IS SINUS BRADYCARDIA 58. LFA G 20 PATENT AND SALINE LOCKED. TYSHAWN PICC LINE G 18 PATENT AND LIPID INFUSING AT 21ML/HR AND NO S/S INFILTRATION NOTED. BED LOW AND LOCKED. SIDE RAILS UP X3. CALL LIGHT WITHIN REACH. WILL ENDORSE TO DIRECTOR FUNERAL.
--- NOTE | 2020-05-01 18:55 | NUR ---
RN NOTE WILL ENDORSE TO CARDIOLOGY CONSULTANTS 2 BAGS OF POTASSIUM FOR ADMINISTRATION. Addendum: 05/01/20 at 1927 by CAROL SOOD RN CINDY NOTE TYPO: 3 BAGS INSTEAD OF 2 BAGS ARE GIVEN TO CARDIOLOGY CONSULTANTS FOR ADMINISTRATION.
--- NOTE | 2020-05-01 19:36 | NUR ---
RN OPENING NOTES PATIENT RECEIVED RESTING IN BED A/O X 3, ABLE TO MAKE NEEDS KNOWN BY MOUTHING WORDS AND ABILITY TO WRITE. PATIENT ON VENT AND TOLERATING SETTINGS WELL WITH BREATHING EVEN AND UNLABORED, NO SOB NOTED. NO SIGNS OF ACUTE DISTRESS. NO COMPLAINTS OF PAIN OR DISCOMFOTR AT THE MOMENT. TELE MONITOR READING SR. PATIENT RUNING TPN AND LIPIDS ON R UPPER ARM PICCLINE. SAFETY PRECAUTIONS IN PLACE WITH BED IN LOWEST POSITION, CALL LIGHT WITHIN REACH, BREAKS ON SIDE, RAILS UP. WILL CONTINUE TO MONITOR THROUGHOUT THE NIGHT.
[2020-05-01] MEDS ORDERED: TPN BAG #2 IV SCH ×2 (20:00)
--- NOTE | 2020-05-01 22:50 | NUR ---
PATIENT REFUSED PICTURES OF WOUNDS, REFUSES TREATMENT TO BE DONE, AND REFUSES TO BE REPOSITIONED DESPITE EDUCATION OF RISKS AND BENEFITS.
[2020-05-02] VITALS (7 sets, daily range): BP systolic 134–149; BP diastolic 75–96
--- NOTE | 2020-05-02 00:04 | NUR ---
PATIENT REFUSED ACCUCHECK SCHEDULED FOR 0000. EDUCATED ON IMPORTANCE OF BLOOD SUGAR CHECK, BUT CONTINUED TO REFUSE. PATIENT SHOWS NO SIGNS OF HYPER OR HYPOGLYCEMIA. NO SIGNS OF ACUTE DISTRESS. WILL MONITOR.
[2020-05-02] MEDS: VANCOMYCIN 500 MG in IV D5W 100ml IV SCH ×2 (03:16→17:54)
--- NOTE | 2020-05-02 05:38 | NUR ---
PATIENT REFUSED AM LAB DRAW. AUTOMATED CUTTING MACHINE OPERATOR WILL TRY AGAIN LATER.
--- NOTE | 2020-05-02 05:52 | NUR ---
PATIENT REFUSED ACCUCHECK SCHEDULED FOR 0600. EDUCATED ON IMPORTANCE OF BLOOD SUGAR CHECK, BUT CONTINUED TO REFUSE. PATIENT SHOWS NO SIGNS OF HYPER OR HYPOGLYCEMIA. NO SIGNS OF ACUTE DISTRESS. WILL MONITOR.
[2020-05-02] MEDS: BLOOD SUGAR DIAGNOSTIC 1 EACH STRIP IN SCH ×5 (05:53→23:34)
--- NOTE | 2020-05-02 06:58 | NUR ---
RN CLOSING NOTES PATIENT RESTING IN BED A/O X 3, ABLE TO MAKE NEEDS KNOWN BY MOUTHING WORDS AND ABILITY TO WRITE. PATIENT ON VENT AND TOLERATING SETTINGS WELL WITH BREATHING EVEN AND UNLABORED, NO SOB NOTED. NO SIGNS OF ACUTE DISTRESS. NO COMPLAINTS OF PAIN OR DISCOMFORT AT THE MOMENT. TELE MONITOR READING SB. PATIENT RUNNING TPN AND LIPIDS ON R UPPER ARM PICCLINE AND KCL 20MEQ @ 60 ML/HR. SAFETY PRECAUTIONS IN PLACE WITH BED IN LOWEST POSITION, CALL LIGHT WITHIN REACH, BREAKS ON SIDE, RAILS UP. PATIENT REFUSED TO BE TURNED , CHANGED, REPOSITIONED, OR HAVE WOUND CARE DONE THROUGHOUT THE NIGHT. WILL ENDORSE TO ONCOMING SHIFT ABOUT JENNIFER.
[2020-05-02] MEDS: PIPERACILLIN /TAZOBACTAM 3.375 G in IV D5W 100 ML IV SCH ×2 (07:09→16:20)
--- NOTE | 2020-05-02 08:00 | NUR ---
RN Opening note Received patient in bed AO x 3-4 , able to responds all stimuli. Patient does no appears pain or discomfort, skin is warm to touch, keep clean/dry, intact piccline. Respiratory even and unlabored with ventilator. Patient refused wound care, labs according power and recovery shift engineer. Kept locked bed with elevated HOB for ensure airway and lowest position for safety. Call light within reach and bed alarm on at all times. Call light within reach, will continue to monitor.
[2020-05-02] MEDS: CHLORHEXIDINE GLUCONATE 15 ML UDC MM SCH ×2 (08:50→21:44)
[2020-05-02] MEDS: FAMOTIDINE/PF INJ 20 MG/2 ML VIAL IV SCH ×2 (08:50→21:45)
[2020-05-02] MEDS: ENOXAPARIN SODIUM 40 MG/0.4 ML DISP.SYRIN SQ SCH (08:51)
[2020-05-02] MEDS: HYDROGEL DRESSING 90 GM TUBE TP SCH (08:51)
[2020-05-02 09:35] LABS: BASOPHILS % (AUTO) 0.5 % (0.0-2.0); EOSINOPHILS % (AUTO) 3.7 % (0.0-6.0); HEMATOCRIT 27 % (39-51); HEMOGLOBIN 9.1 g/dL (13.5-17.5); LYMPHOCYTES # (AUTO) 1.2 /CMM (0.8-4.8); LYMPHOCYTES % (AUTO) 22.9 % (20.0-44.0); MEAN CORPUSCULAR HGB CONC 34 g/dl (31.0-36.0); MEAN CORPUSCULAR VOLUME 90 fL (80-96); MONOCYTES # (AUTO) 0.4 /CMM (0.1-1.30); MONOCYTES % (AUTO) 7.4 % (2.0-12.0); NEUTROPHILS # (AUTO) 3.5 /CMM (1.8-8.9); NEUTROPHILS % (AUTO) 65.5 % (43.0-81.0); PLATELET COUNT (AUTO) 225 /CMM (150-450); RED BLOOD CELL COUNT(AUTO) 2.95 MIL/uL (4.5-6.0); WHITE BLOOD COUNT (AUTO) 5.3 K/uL (4.3-11.0)
[2020-05-02 10:14] LABS: CALCIUM, SERUM 8.9 mg/dL (8.5-10.1); CREATININE 0.6 mg/dL (0.6-1.3); MAGNESIUM 1.9 mg/dL (1.8-2.4); POTASSIUM 3.4 mmol/L (3.5-5.1)
[2020-05-02] MEDS: POTASSIUM CL. PREMIX PERIPHER. 50 ML IV SCH ×2 (11:48→12:50)
[2020-05-02] MEDS: Potassium Chloride 20 MEQ in IV D5/0.45 NACL 1,000 ML IV SCH (12:49)
[2020-05-02] MEDS ORDERED: MISCELLANEOUS MED 1 EA EA MC ONE (13:00)
[2020-05-02] MEDS: FAT EMULSION 20% 500 ML in PREMIX 1 EA IV SCH (16:00)
--- NOTE | 2020-05-02 16:49 | NUR ---
Patient is on Lipid IV at 1600 on EMAR, clarified with pharmacy who said every other date, not scheduled today, noted and will hold.
--- NOTE | 2020-05-02 17:21 | NUR ---
RN Closing note Patient in bed resting comfortably, dos no c/o pain or any discomfort. Patient signed consent for PEG replacement today evening will procedure start at 2014 and kept NPO status. Skin is warm to touch keep clean/dry refused skin care/wound care and blood sugar checks. Respiratory even and unlabored with ventilator, no cough or respiratory distress observed. Kept locked bed and elevated HOB for aspiration precaution, also lowest position for safety. Call light within reach, will endorse heat treat worker.
[2020-05-02] MEDS ORDERED: TPN BAG #3 IV PRN ×2 (20:00)
--- NOTE | 2020-05-02 20:00 | NUR ---
RN OPENING NOTE RECEIVED PATIENT IN BED RESTING ALERT ORIENTED X4 NONVERBAL,NPO FOR COMING PROCEDURE PEG INSERTION AND EGD,ON MECHANICAL VENT SETTING SHILEY 6 TV 500 FIO2 40% PEEP 5 O2:100% IV ON LEFT FOREARM AND RIGHT PICC LINE HE REFUSES TO FLUSH IV LINE,ON IV HYDRATION D5 1/2 NS 40CC/HR.CONTINENT TO BOWEL /BLADDER.CALL LIGHT WITHIN REACH,BED IN LOW POSITION AND LOCKED,CONTINUE TO MONITOR
--- NOTE | 2020-05-02 21:45 | NUR ---
RN NOTE PATIENT IS GOING TO DO PROCEDURE ON BED SIDE EGD,PEG INSERTION,PATIENT IS ALERT ORIENTED X4 ON MECHANICAL VENT ,IN STABLE CONDITION,VS BP:144/83 HR:54 RR:16 T:98.3 O2:100%
--- NOTE | 2020-05-02 22:36 | NUR ---
RN NOTE PATIENT'S PROCEDURE DONE,EGD,PEG INSERTION,VS: BP 122/58 HR:48 RR:16 O2:100 T:97.8 CONTINUE TO MONITOR,FOLLOW UP IN MORNING FOR G-TUBE FEEDING.
--- NOTE | 2020-05-02 23:34 | NUR ---
RN NOTE PATIENT REFUSED TO DO ACCU-CHEK AFTER EXPLAINED BENEFITS AND RISKS,STILL REFUSED CONTINUE TO MONITOR.
[2020-05-03] VITALS (7 sets, daily range): BP systolic 104–147; BP diastolic 54–80
[2020-05-03] MEDS: PIPERACILLIN /TAZOBACTAM 3.375 G in IV D5W 100 ML IV SCH ×3 (00:16→16:15)
[2020-05-03] MEDS: VANCOMYCIN 500 MG in IV D5W 100ml IV SCH ×2 (04:51→17:20)
[2020-05-03] MEDS: BLOOD SUGAR DIAGNOSTIC 1 EACH STRIP IN SCH ×3 (05:49→18:00)
--- NOTE | 2020-05-03 05:49 | NUR ---
RN NOTE PATIENT REFUSED ACCUCHEK AFTER 3 TIMES EXPLAINED RISKS AND BENEFITS,ALSO HE REFUSED TO BE CHANGED AND BED BATH CONTINUE TO MONITOR.
--- NOTE | 2020-05-03 06:58 | NUR ---
RN CLOSING NOTE PATIENT REMAINS ALERT ORIENTED X4 NONVERBAL,ABLE TO MAKE NEEDS KNOWN BY WRITING ON PAPER,ON MECHANICAL VENTILATOR ,O2;100%,IV SITE IS ON RIGHT UPPER ARM MIDLINE,TPN RUNNING 60CC/HR ALL DUE IV MEDS GIVEN MD ORDERED,KCL 20 EMQ D51/2NS RUNNING 40CC/HR HEAD OF BED ELEVATED ALL THE TIME,KEPT COMFORTABLE,SAFETY MEASURE IMPLEMENTED,KEPT CALL LIGHT WITHIN REACH,ENDORSE NEXT COMING SHIFT FOR CONTINUATION OF CARE.
--- NOTE | 2020-05-03 07:34 | NUR ---
MANA[facility] OPENING NOTES RECEIVED PATIENT AWAKE IN BED IN NO ACUTE SIGNS OF DISTRESS. HOB ELEVATED. A/O X4. NO-VERBAL BUT ABLE TO USE GESTURES AND WRITING TO KNOW HIS NEEDS. ON MECHANICAL VENT @ SETTINGS OF: SHILEY 6 TV 500 R 16 FIO2 40% PEEP 5, SATURATING WELL. IV ACCESS ON LEFT FOREARM G#20 AND RIGHT UPPER PICC LINE IN PLACE, IVF INFUSING ORDERED. G-TUBE IN PLACE AND PATENT. ASPIRATION PRECAUTIONS MAINTAINED. SAFETY MEASURES IN PLACE: CALL LIGHT WITHIN REACH, BED IN LOW POSITION AND LOCKED WIT SR UP X2. WILL CONTINUE TO MONITOR PT. Addendum: 05/03/20 at 0801 by MARGARITA DIALLO RN ADDENDUM: PT ON TELEMONITORING WITH CURRENT READING OF SB WITH HR OF 56, NO C/O CARDIAC DISTRESS MADE AT THIS TIME.
[2020-05-03] MEDS: CHLORHEXIDINE GLUCONATE 15 ML UDC MM SCH ×2 (08:50→20:39)
[2020-05-03] MEDS: FAMOTIDINE/PF INJ 20 MG/2 ML VIAL IV SCH ×2 (08:50→20:37)
[2020-05-03] MEDS: ENOXAPARIN SODIUM 40 MG/0.4 ML DISP.SYRIN SQ SCH (08:53)
[2020-05-03 09:53] LABS: BASOPHILS % (AUTO) 0.3 % (0.0-2.0); EOSINOPHILS % (AUTO) 1.4 % (0.0-6.0); HEMATOCRIT 27 % (39-51); HEMOGLOBIN 8.8 g/dL (13.5-17.5); LYMPHOCYTES % (AUTO) 13.7 % (20.0-44.0); MEAN CORPUSCULAR HGB CONC 33 g/dl (31.0-36.0); MEAN CORPUSCULAR VOLUME 90 fL (80-96); MONOCYTES # (AUTO) 0.4 /CMM (0.1-1.30); MONOCYTES % (AUTO) 5.7 % (2.0-12.0); NEUTROPHILS # (AUTO) 5.5 /CMM (1.8-8.9); NEUTROPHILS % (AUTO) 78.9 % (43.0-81.0); PLATELET COUNT (AUTO) 215 /CMM (150-450); RED BLOOD CELL COUNT(AUTO) 2.94 MIL/uL (4.5-6.0)
[2020-05-03 10:15] LABS: CALCIUM, SERUM 9.1 mg/dL (8.5-10.1); CREATININE 0.5 mg/dL (0.6-1.3); MAGNESIUM 1.8 mg/dL (1.8-2.4); PHOSPHORUS 3.2 mg/dL (2.5-4.9); POTASSIUM 3.4 mmol/L (3.5-5.1)
[2020-05-03] MEDS ORDERED: JEVITY 1.2 CAL 1,000 ML BOTTLE GT PRN ×2 (10:30→11:46)
[2020-05-03] MEDS: HYDROGEL DRESSING 90 GM TUBE TP SCH (11:20)
--- NOTE | 2020-05-03 11:35 | NUR ---
RN NOTES PT WITH NEWLY INSERTED G-TUBE, PLACEMENT CHECKED. STARTED ON G-TUBE FEEDING OF JEVITY 1.2 AT 20ML/HR, INCREASING GRADUALLY TOLERATED TO GOAL OF 70ML/HR. ASPIRATION PRECAUTIONS MAINTAINED. WILL MONITOR PT TOLERANCE TO GT FEED.
[2020-05-03] MEDS: Potassium Chloride 20 MEQ in IV D5/0.45 NACL 1,000 ML IV SCH (12:07)
[2020-05-03] MEDS ORDERED: FAT EMULSION 20% 500 ML in PREMIX 1 EA IV SCH (16:00)
--- NOTE | 2020-05-03 18:48 | NUR ---
HITTING COACH CLOSING NOTES PATIENT IN BED AWAKE, A/O X4. NO-VERBAL BUT ABLE TO USE GESTURES AND WRITING TO KNOW HIS NEEDS. MAINTAINED ON MECHANICAL VENT @ SETTINGS OF: SHILEY #6 TV 500 R 16 FIO2 40% PEEP 5, SATURATING WELL WITH NO ACUTE RESPIRATORY DISTRESS NOTED THROUGHOUT THE DAY. ON TELE MONITORING WITH CURRENT READING OF SB WITH HR OF 56, NO C/O CARDIAC DISTRESS MADE. RIGHT UPPER PICC LINE TRIPLE LUMEN IN PLACE, IVF INFUSING ORDERED. G-TUBE IN PLACE AND PATENT, FEEDING OF JEVITY 1.2 AT 50ML/HR RUNNING AT THIS TIME, TOLERATING WELL. ASPIRATION PRECAUTIONS MAINTAINED. SAFETY MEASURES KEPT IN PLACE: HOB KEPT ELEVATED,CALL LIGHT WITHIN REACH, BED IN LOW POSITION AND LOCKED WIT SR UP X2. PT REFUSED TO BE REPOSITIONED. NEEDS ANTICIPATED. WILL ENDORSE TO STACKER AND SORTER OPERATOR NURSE FOR JENNIFER.
--- NOTE | 2020-05-03 19:58 | NUR ---
ENVIRONMENTAL SERVICES ASSISTANT NOTES RECEIVED PATIENT AWAKE IN BED IN NO ACUTE SIGNS OF DISTRESS. HOB ELEVATED. ALERT ORIENTED X4. NON-VERBAL BUT ABLE TO USE GESTURES AND WRITING TO MAKE NEEDS KNOWN. ON MECHANICAL VENT @ SETTINGS OF: SHILEY 6 TV 500 R 16 FIO2 40% PEEP 5, SATURATING WELL. IV ACCESS ON LEFT FOREARM G#20 AND RIGHT UPPER PICC LINE IN PLACE, IVF INFUSING ORDERED. G-TUBE IN PLACE AND PATENT. ASPIRATION PRECAUTIONS MAINTAINED. SAFETY MEASURES IN PLACE: CALL LIGHT WITHIN EASY REACH, BED IN LOW POSITION AND LOCKED WIT SR UP X2. ALL NEEDS ANTICIPATED WILL CONTINUE TO MONITOR ACCORDINGLY.
[2020-05-04] VITALS: BP 112/51
[2020-05-04] MEDS: PIPERACILLIN /TAZOBACTAM 3.375 G in IV D5W 100 ML IV SCH ×2 (00:40→07:57)
--- NOTE | 2020-05-04 00:41 | NUR ---
RN NOTES PATIENT REFUSED ACCU CHECK.
[2020-05-04] MEDS: VANCOMYCIN 500 MG in IV D5W 100ml IV SCH (04:24)
[2020-05-04] MEDS: BLOOD SUGAR DIAGNOSTIC 1 EACH STRIP IN SCH ×3 (06:00→11:59)
--- NOTE | 2020-05-04 06:03 | NUR ---
AUDIO VISUAL SECRETARY NOTES ALL NEEDS ATTENDED AND MET. PATIENT IN BED AWAKE, ALERT ORIENTED X4. NO-VERBAL BUT ABLE TO USE GESTURES AND WRITING TO MAKE NEEDS KNOWN. . MAINTAINED ON MECHANICAL VENT @ SETTINGS OF: SHILEY #6 TV 500 R 16 FIO2 40% PEEP 5, SATURATING WELL WITH NO ACUTE RESPIRATORY DISTRESS NOTED THROUGHOUT THE DAY. ON TELE MONITORING WITH CURRENT READING OF SB WITH HR OF 50s, NO C/O CARDIAC DISTRESS MADE.DENIES ANY PAIN AT THIS TIME. RIGHT UPPER PICC LINE TRIPLE LUMEN IN PLACE, IVF INFUSING ORDERED. G-TUBE IN PLACE AND PATENT, FEEDING OF JEVITY 1.2 AT 60ML/HR RUNNING AT THIS TIME, TOLERATING WELL. ASPIRATION PRECAUTIONS MAINTAINED. SAFETY MEASURES KEPT IN PLACE: HOB KEPT ELEVATED,CALL LIGHT WITHIN REACH, BED IN LOW POSITION AND LOCKED WIT SR UP X2. PATIENT REFUSED TO BE REPOSITIONED. ALL NEEDS ANTICIPATED. WILL ENDORSE TO AM NURSE FOR CONTINUITY OF CARE.
--- NOTE | 2020-05-04 07:29 | NUR ---
HOSPITAL UNIT CLERK OPENING NOTES PATIENT RECEIVED IN BED AWAKE IN NO ACUTE SIGNS OF DISTRESS. A/O X4. NO-VERBAL BUT ABLE TO USE GESTURES AND WRITING TO KNOW HIS NEEDS. ON MECHANICAL VENT @ SETTINGS OF: SHILEY #6 TV 500 R 16 FIO2 40% PEEP 5, SATURATING WELL WITH NO ACUTE RESPIRATORY DISTRESS NOTED. ON TELE MONITORING WITH CURRENT READING OF SB WITH HR OF 52, NO C/O CARDIAC DISTRESS MADE. RIGHT UPPER PICC LINE TRIPLE LUMEN IN PLACE, IVF INFUSING ORDERED. G-TUBE IN PLACE AND PATENT, FEEDING OF JEVITY 1.2 AT 60 ML/HR RUNNING AT THIS TIME, TOLERATING WELL. ASPIRATION PRECAUTIONS MAINTAINED. SAFETY MEASURES IN PLACE: HOB KEPT ELEVATED, CALL LIGHT WITHIN REACH, BED IN LOW POSITION AND LOCKED WIT SR UP X2. WILL CONTINUE TO MONITOR PT..
[2020-05-04 08:00] VITALS: BP 110/55
[2020-05-04] MEDS: FAMOTIDINE/PF INJ 20 MG/2 ML VIAL IV SCH (08:13)
[2020-05-04] MEDS: CHLORHEXIDINE GLUCONATE 15 ML UDC MM SCH (08:13)
[2020-05-04] MEDS: ENOXAPARIN SODIUM 40 MG/0.4 ML DISP.SYRIN SQ SCH (08:25)
[2020-05-04] MEDS: HYDROGEL DRESSING 90 GM TUBE TP SCH (08:25)
[2020-05-04 12:00] VITALS: BP 116/71
--- NOTE | 2020-05-04 13:20 | NUR ---
RN NOTES PT FOR DISCHARGE TODAY, CALLED AND REPORT GIVEN TO CINDY GROSS OF [facility] # [phone]. PT WILL GO TO ROOM 342-A. PICK-UP TIME IS 1500 CALLED PT'S MOTHER ALAYNA AND INFORMED OF PT'S TRANSFER THIS AFTERNOON. .
[2020-05-04] MEDS: Potassium Chloride 20 MEQ in IV D5/0.45 NACL 1,000 ML IV SCH (13:42)
[2020-05-04 13:59] LABS: CALCIUM, SERUM 8.8 mg/dL (8.5-10.1); CREATININE 0.6 mg/dL (0.6-1.3); MAGNESIUM 1.9 mg/dL (1.8-2.4); PHOSPHORUS 3.2 mg/dL (2.5-4.9); POTASSIUM 3.9 mmol/L (3.5-5.1)
--- NOTE | 2020-05-04 15:38 | NUR ---
RN DISCHARGED NOTES PT DISCHARGED TO [facility] IN STABLE CONDITION. PT IS A/O X4. ABLE TO MAKE NEEDS KNOWN VIA GESTURES AND WRITING. V/S TAKEN, STABLE AND RECORDED. PT ON MECHANICAL VENTILATOR AT PRESCRIBED PARAMETERS, TOLERATING SETTINGS WELL WITH NO ACUTE RESPIRATORY DISTRESS NOTED. G-TUBE IN PLACE AND PATENT. PT REFUSED PHOTOS OF SKIN CONDITION TO BE TAKEN, SAME REFUSED TO REPOSITIONED DURING SHIFT. TIPPLE LUMEN PICC LINE ON TYSHAWN KEPT IN PLACE, PT WILL CONTINUE TO TAKE IV ANTIBIOTICS FOR 7 MORE DAYS AT THE [facility]F. REPORT GIVEN EARLIER TO CINDY GROSS OF [facility]. HEALTH TEACHINGS GIVEN TO PT AND GESTURED UNDERSTANDING. PT HAS NO BELONGINGS. PT LEFT UNIT VIA GURNEY ON [facility] AT 1530 ACCOMPANIED BY 3 EMT'S FROM [facility]. AND CHARGE NURSE AWARE OF DISCHARGE.
== END 2020-05-04 16:00 | DRG 252 ==
LOC: ER 23:47 → TELE1 04-27 01:49 → TELE 04-29 15:02
PROVIDERS: ADMIT Registered Nurse; ATTEND Internal Medicine
PROC: 5A1955Z Respiratory Ventilation, Greater than 96 Consecutive Hours (ICD-10-PCS; principal; 2020-04-27)
PROC: 02HV33Z Insertion of Infusion Device into Superior Vena Cava, Percutaneous Approach (ICD-10-PCS; 2020-04-30)
PROC: 0DH63UZ Insertion of Feeding Device into Stomach, Percutaneous Approach (ICD-10-PCS; 2020-05-02)
DX: K94.22 Gastrostomy infection (principal); Z99.11 Dependence on respirator [ventilator] status; E86.0 Dehydration; L03.311 Cellulitis of abdominal wall; K94.23 Gastrostomy malfunction; R13.10 Dysphagia, unspecified; J96.11 Chronic respiratory failure with hypoxia; R53.2 Functional quadriplegia; Z79.51 Long term (current) use of inhaled steroids; Z79.899 Other long term (current) drug therapy; D64.9 Anemia, unspecified; Z91.19 Patient's noncompliance with other medical treatment and regimen; Z86.19 Personal history of other infectious and parasitic diseases; K29.70 Gastritis, unspecified, without bleeding; L89.153 Pressure ulcer of sacral region, stage 3; Z68.1 Body mass index [BMI] 19.9 or less, adult; E87.6 Hypokalemia; E83.52 Hypercalcemia; Y83.3 Surgical operation with formation of external stoma as the cause of abnormal reaction of the patient, or of later complication, without mention of misadventure at the time of the procedure; Y82.9 Unspecified medical devices associated with adverse incidents; Y92.9 Unspecified place or not applicable
CPT/HCPCS: 31720; 36415; 36569; 43246; 71045-TC; 80048-TC; 80061-TC; 80202-TC; 81001; 82040-TC; 82436-TC; 82570-TC; 82962-TC; 83735-TC; 83935-TC; 83970; 84100-TC; 84133-TC; 84134-TC; 84155-TC; 84300-TC; 84443-TC; 84478-TC; 85025-TC; 85730-TC; 87081-TC; 94002-TC; 94003-TC; 94760-TC; 94762-TC; 94799-TC; 99082-TC; A4216; A4623; A6248; A6253; A6403; A7526; C1751; C9113; C9803; G0378; J1650; J1815; J2270; J2543; J2704; J3370; J3475; J3480; J3490; J7040; J7042; J7050; J7060; J7070